=== PATIENT | female | born 1950 | race Caucasian/White ===

== ENCOUNTER 2017-07-31 10:38 | Outpatient (CLI) | payer MEDICARE, BC ==
--- NOTE | 2017-07-31 16:06 | NM ---
THREE PHASE BONE SCAN: Date: 07/31/17 CLINICAL HISTORY: Right knee replacement 8 years prior, with feeling of prosthetic mobility, pain. RADIOPHARMACEUTICAL: 31.2 mCi technetium-99m MDP IV. FINDINGS: Blood flow, blood pool, and delayed phase imaging performed. This reveals a photopenic defect at the right knee compatible with prosthesis. There is no significant periprosthetic scintigraphic activity to confirm loosening. There is prominent degenerative activity at the left knee. IMPRESSION: 1. No scintigraphic evidence to confirm loosening of the right knee prosthesis. 2. Prominent degenerative activity of the left knee. 3. Radiographic evaluation to correlate with bone scan evaluation would prove useful. POS: [facility]
== END 2017-07-31 10:39 | disposition home or self-care (01) ==
LOC: NM 10:38
PROVIDERS: ATTEND Family Medicine Sports Medicine
DX: M25.561 Pain in right knee (principal); Z96.651 Presence of right artificial knee joint
CPT/HCPCS: 78315; A9503

== ENCOUNTER 2017-10-01 13:55 | Inpatient (IN) | payer MEDICARE, BC ==
--- NOTE | 2017-10-01 15:17 | CT ---
CT PULMONARY ANGIOGRAM WITH IV CONTRAST AND 3D POSTPROCESSING: HISTORY: Cough, pneumonia. FINDINGS: There is good contrast opacification of the pulmonary arterial vascular without filling defects to capellan ggest pulmonary embolism. The thoracic aorta is well opacified without aneurysmal dissection. No pe ricardial effusion is seen. There are small right and moderate left pleural effusions with patchy ar eas of consolidation in the lung green bilaterally. There are degenerative changes in the spine. IMPRESSION: 1. No CT evidence of pulmonary embolism. 2. Bilateral infiltrates and pleural effusions are likely of infective etiology. POS: [facility]
[2017-10-01] MEDS ORDERED: Piperacillin/Tazobactam 4.5 GM in Sodium Chloride 0.9% 100 ML IVPB SCH (15:30)
[2017-10-01 15:49] LABS: Hemoglobin 8.3 g/dL (12.0-16.0); Mean Corpuscular HGB CONC 32.4 g/dL (32.0-36.0); Mean Corpuscular Hemoglobin 31.1 pg (27.0-31.0); Mean Corpuscular Volume 96.1 fl (81.0-99.0); Mean Platelet Volume 8.5 fL (7.4-10.4); Platelet Count 226 thou/uL (130-400); Red Blood Cell (RBC) Count 2.66 mill/uL (4.20-5.40); White Blood Cell (WBC) Count 17.2 thou/uL (4.8-10.8)
[2017-10-01 16:09] LABS: Lactic Acid 1.3 mmol/L (0.5-2.2)
[2017-10-01 16:14] LABS: ALT (SGPT) Less than 7 U/L (8-55); AST (SGOT) 11 U/L (5-34); Albumin 2.9 g/dL (3.4-4.8); Alkaline Phosphatase 57 U/L (40-150); Anion Gap 10 mmol/L (10-20); BUN (Urea Nitrogen) 12 mg/dL (9.8-20.1); Bilirubin, Total 0.5 mg/dL (0.2-1.2); Calc. Creatinine Clearance 0 mL/min (70-130); Calcium 8.4 mg/dL (7.8-10.44); Carbon Dioxide 31 mmol/L (23-31); Chloride 99 mmol/L (98-107); Estimated GFR-MDRD 51; Globulin 3.5 g/dL (2.4-3.5); Glucose 92 mg/dL (80-115); Potassium 4.2 mmol/L (3.5-5.1); Protein, Total 6.4 g/dL (6.0-8.3); Sodium 136 mmol/L (136-145)
[2017-10-01 16:27] LABS: CKMB 0.7 ng/mL (0-6.6); Troponin I Less than 0.010 ng/mL (< 0.028)
[2017-10-01 16:39] LABS: Lymphocytes 4 % (21-51); MDiff Complete? YES; Monocytes 9 % (0-10); Neutrophil 87 % (42-75); PLT Morphology Comment Appears Adequate
[2017-10-01] MEDS ORDERED: ISOVUE-370 76%-LOCM 1 ML ONE (17:08)
[2017-10-01] MEDS ORDERED: Milk Of Magnesia 30 ML UDCUP PO PRN (17:16)
[2017-10-01] MEDS ORDERED: Ondansetron ODT 4 MG TAB PO PRN (17:16)
[2017-10-01] MEDS ORDERED: Loperamide HCl 2 MG CAP PO PRN (17:16)
[2017-10-01] MEDS ORDERED: Eucerin (Mineral Oil/Petrolatum,White) 30 gm Jar TOP PRN (17:16)
[2017-10-01] MEDS ORDERED: Bisacodyl 10 MG SUPP PR PRN (17:16)
[2017-10-01] MEDS ORDERED: hydrALAZINE 20 MG/ML VIAL SLOW IVP PRN (17:16)
[2017-10-01] MEDS ORDERED: Acetaminophen 325 MG TAB PO PRN (17:16)
[2017-10-01] MEDS ORDERED: Loratadine 10 MG TAB PO PRN (17:16)
[2017-10-01] MEDS ORDERED: Ketorolac Tromethamine 30 MG/ML VIAL IVP PRN (17:16)
[2017-10-01] MEDS ORDERED: Mag-Al 1200 mg/1200 mg/30 ML UDCUP PO PRN (17:16)
[2017-10-01] MEDS ORDERED: Zolpidem Tartrate 5 MG TAB PO PRN (17:16)
[2017-10-01] MEDS ORDERED: Artificial Tears 18 DROP/0.9 ML EA EYE PRN (17:16)
[2017-10-01] MEDS ORDERED: Sodium Chloride 0.65% Nasal 44 ML BOT EA NARE PRN (17:16)
[2017-10-01] MEDS ORDERED: Chloraseptic Spray 180 ml Bottle PO PRN (17:16)
[2017-10-01] MEDS ORDERED: Fleet Enema 133 ML BOT PR PRN (17:16)
--- NOTE | 2017-10-01 17:40 | HP ---
PRIMARY CARE PHYSICIAN: Aaliyah Her, Family Nurse Practitioner. REASON FOR ADMISSION: Bilateral pneumonia, failed outpatient therapy. HISTORY OF PRESENT ILLNESS: A 67-year-old female who had left total knee replacement done by Dr. Sohail duncan at [facility] about a week and half ago. The patient had surgery one week before Thursday. She did okay on Thursday and after that; Thursday, she had respiratory difficulty. As per patient's d marhter, she had some kind of arrest. Her oxygen saturation was not keeping up and she was having re spiratory distress and that is why she required transfer to [facility] where she stayed up until Thursday of this week. Over there, the patient was given antibiotic therapy. The patient was slowly recovering. Initially, she had a cough productive of yellowish white sputum, but then sh e had only dry cough. She was having pleuritic chest pain. She was having dyspnea on exertion. She was feeling weak. She was discharged to [facility] on Thursday. She did oka y on . The patient was taking antibiotic therapy with clindamycin and levofloxacin. The yulissa fernandez has finished antibiotic therapy just yesterday, but condition was not improving. She was feelin g more shortness of breath and that is why skilled nursing sent her to the emergency room for evaluation . In the emergency room, the patient had CT angio, which was negative for pulmonary embolism, but it did show bilateral infiltration with pleural effusion. The patient also had leukocytosis with a lef t shift. The patient was initially hypotensive, but her blood pressure improved with IV fluid. The patient denies any lower extremity edema. She denies any orthopnea or PND. She was feeling subjecti ve fevers. She denies any flu-like illness. She denies any recent upper respiratory infection. She denies any sick exposure. She was recently hospitalized at [facility]. ALLERGIES: CODEINE SULFATE. CURRENT HOME MEDICATIONS: Cardizem-CD 180 mg p.o. daily, dicyclomine 10 mg twice daily, Celexa 40 mg p.o. daily, clindamycin 300 mg 4 times daily, gabapentin 300 mg twice daily, oxybutynin ER 10 mg p.o . daily, potassium chloride 20 mEq p.o. daily, Phenergan 25 mg p.o. p.r.n., Tessalon 100 mg 3 times d aily p.r.n., tramadol 50 mg q.6 hourly p.r.n., Lasix 40 mg p.o. daily, Levaquin 750 mg p.o. daily. REVIEW OF SYSTEMS: The following complete review of systems was negative, unless otherwise mentioned in the HPI or below: Constitutional: Weight loss or gain, ability to conduct usual activities. Skin: Rash, itching. Eyes: Double vision, pain. ENT/Mouth: Nose bleeding, neck stiffness, pain, tenderness. Cardiovascular: Palpitations, dyspnea on exertion, orthopnea. Respiratory: Shortness of breath, wheezing, cough, hemoptysis, fever or night sweats. Gastrointestinal: Poor appetite, abdominal pain, heartburn, nausea, vomiting, constipation, or diarr hea. Genitourinary: Urgency, frequency, dysuria, nocturia. Musculoskeletal: Pain, swelling. Neurologic/Psychiatric: Anxiety, depression. Allergy/Immunologic: Skin rash, bleeding tendency. Please see my HPI for pertinent positives and negatives. All other review of systems reviewed and ne gative except as mentioned in the HPI. PAST MEDICAL HISTORY: Lumbar disk disease, chronic low back pain, restless leg syndrome, irritable b owel syndrome, hypertension, overactive bladder, osteoarthritis. PAST SURGICAL HISTORY: Hysterectomy, history of right knee replacement, status post left knee replac ement. PAST PSYCHIATRIC HISTORY: Anxiety and depression. SOCIAL HISTORY: The patient lives at home with family. No history of tobacco, alcohol or illicit dr ug abuse. Currently, the patient is from skilled nursing. FAMILY HISTORY: No strong family history of premature coronary artery disease, stroke or cancer. EMERGENCY ROOM COURSE: The patient has received vancomycin, Zosyn and IV fluid. PHYSICAL EXAMINATION: VITAL SIGNS: Currently, blood pressure 110/52, pulse 94, respiratory rate 20, temperature 98.3, satu ration 98% on 2 liter oxygen. Weight 83.1 kilograms. GENERAL: The patient is currently alert, awake, in no obvious acute distress. HEAD: Normocephalic, atraumatic. EYES: Pupils are round and reactive to light. Extraocular muscles are intact. ENT: Oropharynx within normal limits. Moist mucous membranes. No oral lesions. No pharyngeal eryt felipa. No exudate. NECK: Supple, no JVD, no thyromegaly, no carotid bruits. LUNGS: Bibasilar rales noted. End expiratory wheezing heard. Reduced air entry at base. CARDIAC: S1, S2 regular without any murmur. ABDOMEN: Soft, bowel sounds present, nontender, nondistended. No organomegaly, no mass, no suprapub ic tenderness. BACK: Unremarkable, no CVA tenderness. EXTREMITIES: Upper extremity: Passive movement of all joints are normal. Lower extremities: The l eft knee surgical site is clean and healthy, right lower extremity within normal limits. Good distal pulsation. No edema, no calf tenderness. NEUROLOGIC: Nonfocal examination. The patient moves all 4 limbs. Plantar bilateral flexor. Motor and sensory within normal limits. No cerebellar sign. HEMATOLOGIC SYSTEM: No lymphadenopathy. PSYCHIATRIC: Normal affect. SIGNIFICANT LABORATORY DATA: CT angio based on my review, no evidence of pulmonary embolism, bilater al infiltrate and pleural effusion, likely due to infectious etiology. property assessment monitor was showing normal sinus rhythm without any ischemic changes. CBC: WBC 17.2, hemoglobin 8.3, platelet 226 with a left shift. BMP: Sodium 136, potassium 4.2, chl oride 99, carbon dioxide 31, anion gap 10, BUN 12, creatinine 1.07, glucose 92, calcium 8.4, lactic a yudith 1.3. LFT: AST 11, ALT less than 7, alkaline phosphatase 57, albumin 2.9, protein 6.4, CK-MB 0.7 , troponin I less than 0.010. BNP 79.8. ASSESSMENT AND PLAN: IMPRESSION: 1. Bilateral pneumonia, healthcare-associated. Failed outpatient therapy. This patient still has o ngoing cough, shortness of breath. She does have bilateral lower lobe infiltration as well as effusi on. She has leukocytosis. She does have pleuritic chest pain. CT angio does not show any PE. Her BNP is normal. Her cardiac enzymes are negative, so most likely this patient has healthcare-associat ed pneumonia given her recent hospitalization at [facility]. This patient has not completely re covered yet. At this point, we will keep this patient in hospital and we will continue with antibiot ic therapy with vancomycin and Zosyn. We will check influenza screen. We will follow up on blood cu lture result. We will also send urine culture and urinalysis to rule out any associated urinary trac t infection. 2. Hypotension. At this point, the patient will be given gentle IV fluid at 100 mL per hour and we will monitor vitals. We will hold on antihypertensive medication. 3. Chronic low back pain with lumbar disk disease. We will continue gabapentin 300 mg p.o. twice da kristie. 4. Anxiety and depression. We will continue Celexa 40 mg p.o. daily. 5. Recent left total knee replacement. The patient will need PT, OT while in hospital. 6. History of irritable bowel syndrome. We will continue Bentyl 10 mg twice daily. 7. Overactive bladder. We will continue Ditropan ER 10 mg p.o. daily. 8. Restless leg syndrome. 9. Deep venous thrombosis prophylaxis. Lovenox 40 mg subcu daily. 10. Gastrointestinal prophylaxis. Pepcid 20 mg p.o. b.i.d. 11. Code status: The patient is FULL CODE. The patient's daughter is surrogate decision maker. Disposition plan based on clinical course. We are expecting patient's stay in hospital more than 2 m idnights. Plan of care discussed with the patient and family member at bedside in the emergency room .
[2017-10-01 17:51] VITALS: BMI 33.5
[2017-10-01 18:01] LABS: Bilirubin Negative (Negative); Blood, Urine Negative (Negative); Clarity CLEAR (Clear); Glucose, Urine (Dipstick) Negative (Negative); Leukocyte Negative (Negative); Nitrite Negative (Negative); Protein, Urine (Dipstick) Negative (Neg-Trace); Specific Gravity, Urine 1.014 (1.002-1.036); Urobilinogen 0.2 mg/dL (0.2-1.0)
[2017-10-01] MEDS: traMADol HCl 50 MG TAB PO PRN (18:11)
[2017-10-01] MEDS: Diabetic Tussin 200 MG/10 ML UDCUP PO PRN (18:11)
[2017-10-01] MEDS: Sodium Chloride 0.9% 1,000 ML IV SCH (18:11)
[2017-10-01 18:13] LABS: Bacteria/HPF Rare-Few HPF (None Seen); Hyaline Casts/LPF NONE SEEN LPF (0-3 Hyaline); RBC/HPF None Seen HPF (0-3); Squamous Epithelial 0-3 HPF (0-3); WBC/HPF None Seen HPF (0-3)
[2017-10-01] MEDS: Docusate 100 MG CAP PO SCH (21:20)
[2017-10-01] MEDS: guaiFENesin ER 600 MG TAB PO SCH (21:20)
[2017-10-01] MEDS: Famotidine 20 MG TAB PO SCH (21:20)
[2017-10-02] MEDS: Piperacillin/Tazobactam 4.5 GM in Sodium Chloride 0.9% 100 ML IVPB SCH ×4 (00:45→17:30)
[2017-10-02] MEDS: Sodium Chloride 0.9% 1,000 ML IV SCH ×2 (04:37→08:37)
[2017-10-02 04:43] LABS: #Lymphocytes 0.7 thou/uL (1.20-3.40); #Monocytes 0.6 thou/uL (0.11-0.59); #Neutrophils 13.4 thou/uL (1.40-6.50); %Basophils 0.1 % (0.0-1.0); %Lymphocytes 4.9 % (21.0-51.0); %Monocytes 4.3 % (0.0-10.0); %Neutrophils 90.6 % (42.0-75.0); Hemoglobin 8.5 g/dL (12.0-16.0); Mean Corpuscular Hemoglobin 30.9 pg (27.0-31.0); Mean Corpuscular Volume 96.5 fl (81.0-99.0); Mean Platelet Volume 8.6 fL (7.4-10.4); Platelet Count 229 thou/uL (130-400); RBC Distribution Width 13.1 % (11.5-14.5); Red Blood Cell (RBC) Count 2.76 mill/uL (4.20-5.40); White Blood Cell (WBC) Count 14.8 thou/uL (4.8-10.8)
[2017-10-02 05:02] LABS: ALT (SGPT) Less than 7 U/L (8-55); AST (SGOT) 10 U/L (5-34); Alkaline Phosphatase 61 U/L (40-150); Anion Gap 12 mmol/L (10-20); BUN (Urea Nitrogen) 10 mg/dL (9.8-20.1); Bilirubin, Total 0.4 mg/dL (0.2-1.2); Calc. Creatinine Clearance 67 mL/min (70-130); Calcium 8.3 mg/dL (7.8-10.44); Carbon Dioxide 26 mmol/L (23-31); Chloride 103 mmol/L (98-107); Estimated GFR-MDRD 52; Globulin 3.6 g/dL (2.4-3.5); Glucose 188 mg/dL (80-115); Potassium 4.8 mmol/L (3.5-5.1); Protein, Total 6.6 g/dL (6.0-8.3); Sodium 136 mmol/L (136-145)
[2017-10-02] MEDS ORDERED: Polyethylene Glycol 3350 17 GM Packet PO PRN (07:41)
[2017-10-02] MEDS: Docusate 100 MG CAP PO SCH ×2 (08:36→21:55)
[2017-10-02] MEDS: Famotidine 20 MG TAB PO SCH ×2 (08:36→21:54)
[2017-10-02] MEDS: Enoxaparin Sodium 40 MG/0.4 ML SYRINGE SC SCH (08:36)
[2017-10-02] MEDS: guaiFENesin ER 600 MG TAB PO SCH ×2 (08:36→21:54)
[2017-10-02] MEDS: Dicyclomine 10 MG CAP PO SCH ×2 (08:36→21:54)
[2017-10-02] MEDS ORDERED: Non-Formulary Item 1 EACH (Oxybutynin Chloride [Oxybutynin Chloride Er] 10 MG) PO SCH (09:00)
--- NOTE | 2017-10-02 10:08 | PDOC.PN ---
- Subjective Encounter Start Date: 10/02/17 Encounter Start Time: 08:40 -: old records requested/rev Patient seen and examined. No new complaints. No overnight events - Objective Resuscitation Status: Resuscitation Status FULL:Full Resuscitation MAR Reviewed: Yes Vital Signs & Weight: Vital Signs (12 hours) Temp Pulse Resp BP Pulse Ox 10/02/17 07:23 97.4 F L 80 16 117/69 98 10/02/17 04:00 98.1 F 84 18 101/65 94 L 10/02/17 00:00 98.2 F 92 18 108/68 92 L Weight Weight 183 lb I&O: 10/01/17 10/02/17 10/03/17 06:59 06:59 06:59 Intake Total 2380 Output Total 1450 Balance 930 Result Diagrams: 10/02/17 04:12 10/02/17 04:12 Phys Exam - Physical Examination Constitutional: NAD HEENT: PERRLA, moist MMs, sclera anicteric Neck: no JVD, supple Respiratory: no wheezing, no rhonchi basilar rales Cardiovascular: RRR, no significant murmur, no rub Gastrointestinal: soft, non-tender, no distention, positive bowel sounds Musculoskeletal: no edema, pulses present left knee with pedro Neurological: non-focal, normal sensation, moves all 4 limbs Psychiatric: normal affect, A&O x 3 Skin: no rash, normal turgor Dx/Plan (1) Healthcare associated bacterial pneumonia Code(s): J15.9 - UNSPECIFIED BACTERIAL PNEUMONIA Status: Acute (2) Sepsis Code(s): A41.9 - SEPSIS, UNSPECIFIED ORGANISM Status: Acute (3) Status post left knee replacement Code(s): Z96.652 - PRESENCE OF LEFT ARTIFICIAL KNEE JOINT Status: Acute (4) Anemia, normocytic normochromic Code(s): D64.9 - ANEMIA, UNSPECIFIED Status: Chronic (5) Anxiety and depression Code(s): F41.8 - OTHER SPECIFIED ANXIETY DISORDERS Status: Chronic (6) Chronic low back pain Code(s): M54.5 - LOW BACK PAIN; G89.29 - OTHER CHRONIC PAIN Status: Chronic (7) Hypertension Code(s): I10 - ESSENTIAL (PRIMARY) HYPERTENSION Status: Chronic (8) Obesity (BMI 30.0-34.9) Code(s): E66.9 - OBESITY, UNSPECIFIED Status: Chronic (9) Hypotension Status: Resolved - Plan cont current plan of care, plan discussed w/ family, continue antibiotics, PT/OT , school social worker, respiratory therapy, incentive spirometry, DVT proph w/ lovenox * continue IVF * continue vancomycin and zosyn * start PT * medication reviewed as below * symptomatic treatment * follow culture * discussed with daughter * pt wants to change longterm on discharge, case folder notified. Review of Systems - Review of Systems Constitutional: negative: fever, chills, sweats, weakness, malaise, other Eyes: negative: Pain, Vision Change, Conjunctivae Inflammation, Eyelid Inflammation, Redness, Other ENT: negative: Ear Pain, Ear Discharge, Nose Pain, Nose Discharge, Nose Congestion, Mouth Pain, Mouth Swelling, Throat Pain, Throat Swelling, Other Respiratory: Cough, Shortness of Breath, SOB with Excertion. negative: Dry, Hemoptysis, Pleuritic Pain, Sputum, Wheezing Cardiovascular: negative: chest pain, palpitations, orthopnea, paroxysmal nocturnal dyspnea, edema, light headedness, other Gastrointestinal: negative: Nausea, Vomiting, Abdominal Pain, Diarrhea, Constipation, Melena, Hematochezia, Other Genitourinary: negative: Dysuria, Frequency, Incontinence, Hematuria, Retention , Other Musculoskeletal: negative: Neck Pain, Shoulder Pain, Arm Pain, Back Pain, Hand Pain, Leg Pain, Foot Pain, Other Skin: negative: Rash, Lesions, Sy, Bruising, Other - Medications/Allergies Allergies/Adverse Reactions: Allergies Allergy/AdvReac Type Severity Reaction Status Date / Time No Known Allergies Allergy Unverified 10/01/17 17:53 Medications: Current Medications Acetaminophen (Tylenol) 650 mg PO Q4H PRN PRN Reason: Headache/Fever or Pain Al Hydroxide/Mg Hydroxide (Maalox) 30 ml PO Q6H PRN PRN Reason: Heartburn or Indigestion Albuterol/Ipratropium (Duoneb) 3 ml NEB [id number] Last Admin: 10/02/17 07:23 Dose: 3 ml Albuterol/Ipratropium (Duoneb) 3 ml NEB [id number] PRN PRN Reason: SOB &/or Wheezing Artificial Tears (Tears Naturale) 0 drop EA EYE PRN PRN PRN Reason: Dry Eyes Bisacodyl (Dulcolax) 10 mg [place] Q24H PRN PRN Reason: Constipation Dicyclomine HCl (Bentyl) 10 mg PO BID [facility] Last Admin: 10/02/17 08:36 Dose: 10 mg Docusate Sodium (Colace) 100 mg PO BID [facility] Last Admin: 10/02/17 08:36 Dose: 100 mg Enoxaparin Sodium (Lovenox) 40 mg SC 0900 [facility] Last Admin: 10/02/17 08:36 Dose: 40 mg Famotidine (Pepcid) 20 mg PO BID [facility] Last Admin: 10/02/17 08:36 Dose: 20 mg Guaifenesin (Robitussin Sf) 200 mg PO Q4H PRN PRN Reason: Cough Last Admin: 10/01/17 18:11 Dose: 200 mg Guaifenesin (Mucinex) 600 mg PO Q12HR [facility] Last Admin: 10/02/17 08:36 Dose: 600 mg Hydralazine HCl (Apresoline) 10 mg SLOW IVP Q4H PRN PRN Reason: Systolic BP > 180 Sodium Chloride (Normal Saline 0.9%) 1,000 mls @ 100 mls/hr IV .Q10H [facility] Last Admin: 10/02/17 08:37 Dose: 1,000 mls Piperacillin Sod/Tazobactam (Sod 4.5 gm/ Sodium Chloride) 100 mls @ 200 mls/hr IVPB Q6HR [facility] Last Admin: 10/02/17 06:33 Dose: 100 mls Vancomycin HCl 1.25 gm/ Sodium (Chloride) 250 mls @ 166.667 mls/hr IVPB 1500 [facility]I Ketorolac Tromethamine (Toradol) 15 mg IVP Q6H PRN PRN Reason: Pain Stop: 10/06/17 17:17 Loperamide HCl (Imodium) 2 mg PO PRN PRN PRN Reason: Diarrhea/Loose Stools Loratadine (Claritin) 10 mg PO DAILYPRN PRN PRN Reason: Sinus Symptoms Magnesium Hydroxide (Milk Of Magnesium) 30 ml PO DAILYPRN PRN PRN Reason: Constipation Methylprednisolone Sodium Succinate (Solu-Medrol) 20 mg IVP Q8HR [facility] Last Admin: 10/02/17 06:32 Dose: 20 mg Mineral Oil/White Petrolatum (Eucerin Cream) 0 gm TOP BIDPRN PRN PRN Reason: Dry Skin Miscellaneous Medication (Pharmacy To Dose) 1 each IVPB ONE PRN PRN Reason: Pharmacy to dose Stop: 10/31/17 17:17 Ondansetron HCl (Zofran Odt) 4 mg PO Q6H PRN PRN Reason: Nausea/Vomiting Ondansetron HCl (Zofran) 4 mg IVP Q6H PRN PRN Reason: Nausea/Vomiting Oxybutynin Chloride (Ditropan Xl) 10 mg PO DAILY ZI Phenol (Chloraseptic [place] 180 Ml Bot) 0 ml PO PRN PRN PRN Reason: Sore Throat Polyethylene Glycol (Miralax) 17 gm PO DAILY PRN PRN Reason: Constipation Sodium Biphosphate/Sodium Phosphate (Fleet Enema) 133 ml [place] ONE PRN PRN Reason: Constipation Stop: 10/08/17 17:17 Sodium Chloride ([place] Nasal [place] 0.65%) 0 ml EA NARE QIDPRN PRN PRN Reason: Nasal Congestion Tramadol HCl (Ultram) 50 mg PO Q4H PRN PRN Reason: Moderate Pain (4-6) Last Admin: 10/01/17 18:11 Dose: 50 mg Zolpidem Tartrate (Ambien) 5 mg PO HSPRN PRN PRN Reason: Insomnia
[2017-10-02] MEDS: Oxybutynin ER 5 MG TAB PO SCH (10:11)
[2017-10-02] MEDS: traMADol HCl 50 MG TAB PO PRN (12:00)
[2017-10-02] MEDS ORDERED: Vancomycin HCl 1.25 GM in Sodium Chloride 0.9% 250 ML 250 ML IVPB SCH (15:00)
[2017-10-02] MEDS ORDERED: Albuterol Sulfate 2.5 mg/3 ml Neb NEB PRN (21:26)
[2017-10-02] MEDS: Lorazepam 1 MG TAB PO PRN (21:55)
[2017-10-02] MEDS: cefTRIAXone\\ROCEPHIN 2 GM in Sodium Chloride 0.9% 100 ML IVPB SCH (23:15)
[2017-10-03] MEDS: Piperacillin/Tazobactam 4.5 GM in Sodium Chloride 0.9% 100 ML IVPB SCH ×4 (00:50→18:22)
[2017-10-03] MEDS: Sodium Chloride 0.9% 1,000 ML IV SCH ×2 (01:06→08:55)
[2017-10-03] MEDS: guaiFENesin ER 600 MG TAB PO SCH ×2 (08:51→20:37)
[2017-10-03] MEDS: Docusate 100 MG CAP PO SCH ×2 (08:51→20:38)
[2017-10-03] MEDS: Famotidine 20 MG TAB PO SCH ×2 (08:51→20:38)
[2017-10-03] MEDS: Dicyclomine 10 MG CAP PO SCH ×2 (08:51→20:39)
[2017-10-03] MEDS: Oxybutynin ER 5 MG TAB PO SCH (08:52)
[2017-10-03] MEDS: Enoxaparin Sodium 40 MG/0.4 ML SYRINGE SC SCH (08:52)
--- NOTE | 2017-10-03 10:19 | PDOC.PN ---
- Subjective Encounter Start Date: 10/03/17 Encounter Start Time: 08:00 last night pt had panic attack, has cough, still has weakness, no fever, oxygen level is still low - Objective Resuscitation Status: Resuscitation Status FULL:Full Resuscitation MAR Reviewed: Yes Vital Signs & Weight: Vital Signs (12 hours) Temp Pulse Resp BP Pulse Ox 10/03/17 07:45 97.7 F 102 H 18 143/73 H 89 L 10/03/17 06:47 98 16 94 L 10/03/17 00:00 98.1 F 104 H 20 126/76 95 Weight Weight 183 lb I&O: 10/02/17 10/03/17 10/04/17 06:59 06:59 06:59 Intake Total 2380 3660 Output Total 1450 1700 Balance 930 1960 Result Diagrams: 10/02/17 04:12 10/02/17 04:12 Phys Exam - Physical Examination Constitutional: NAD HEENT: PERRLA, moist MMs, sclera anicteric Neck: no JVD, supple Respiratory: no wheezing, no rales, no rhonchi reduced air entry at base Cardiovascular: RRR, no significant murmur, no rub Gastrointestinal: soft, non-tender, no distention, positive bowel sounds Musculoskeletal: no edema, pulses present left knee pedro at surgical site Neurological: non-focal, normal sensation Psychiatric: normal affect, A&O x 3 Skin: no rash, normal turgor Dx/Plan (1) Healthcare associated bacterial pneumonia Code(s): J15.9 - UNSPECIFIED BACTERIAL PNEUMONIA Status: Acute (2) Sepsis Code(s): A41.9 - SEPSIS, UNSPECIFIED ORGANISM Status: Acute (3) Status post left knee replacement Code(s): Z96.652 - PRESENCE OF LEFT ARTIFICIAL KNEE JOINT Status: Acute (4) Anemia, normocytic normochromic Code(s): D64.9 - ANEMIA, UNSPECIFIED Status: Chronic (5) Anxiety and depression Code(s): F41.8 - OTHER SPECIFIED ANXIETY DISORDERS Status: Chronic (6) Chronic low back pain Code(s): M54.5 - LOW BACK PAIN; G89.29 - OTHER CHRONIC PAIN Status: Chronic (7) Hypertension Code(s): I10 - ESSENTIAL (PRIMARY) HYPERTENSION Status: Chronic (8) Obesity (BMI 30.0-34.9) Code(s): E66.9 - OBESITY, UNSPECIFIED Status: Chronic (9) Hypotension Status: Resolved - Plan cont current plan of care, continue antibiotics, PT/OT * change dueneb as needed. * continue vancomycin and zosyn * await placement to another SNU * DC IVF * will repeat labs tomorrow * medication reviewed as below * symptomatic treatment * will discuss with her ortho on Thursday to consider removal of pedro Review of Systems - Review of Systems Constitutional: weakness. negative: fever, chills, sweats, malaise, other Respiratory: Cough. negative: Dry, Shortness of Breath, Hemoptysis, SOB with Excertion, Pleuritic Pain, Sputum, Wheezing Cardiovascular: negative: chest pain, palpitations, orthopnea, paroxysmal nocturnal dyspnea, edema, light headedness, other Gastrointestinal: negative: Nausea, Vomiting, Abdominal Pain, Diarrhea, Constipation, Melena, Hematochezia, Other Genitourinary: negative: Dysuria, Frequency, Incontinence, Hematuria, Retention , Other Musculoskeletal: negative: Neck Pain, Shoulder Pain, Arm Pain, Back Pain, Hand Pain, Leg Pain, Foot Pain, Other Skin: negative: Rash, Lesions, Sy, Bruising, Other - Medications/Allergies Allergies/Adverse Reactions: Allergies Allergy/AdvReac Type Severity Reaction Status Date / Time No Known Allergies Allergy Unverified 10/01/17 17:53 Medications: Current Medications Acetaminophen (Tylenol) 650 mg PO Q4H PRN PRN Reason: Headache/Fever or Pain Al Hydroxide/Mg Hydroxide (Maalox) 30 ml PO Q6H PRN PRN Reason: Heartburn or Indigestion Albuterol Sulfate (Ventolin) 2.5 mg NEB Q2H PRN PRN Reason: Wheezing Albuterol/Ipratropium (Duoneb) 3 ml NEB [id number] [facility] Last Admin: 10/03/17 06:47 Dose: 3 ml Artificial Tears (Tears Naturale) 0 drop EA EYE PRN PRN PRN Reason: Dry Eyes Bisacodyl (Dulcolax) 10 mg [place] Q24H PRN PRN Reason: Constipation Dicyclomine HCl (Bentyl) 10 mg PO BID [facility] Last Admin: 10/03/17 08:51 Dose: 10 mg Docusate Sodium (Colace) 100 mg PO BID [facility] Last Admin: 10/03/17 08:51 Dose: 100 mg Enoxaparin Sodium (Lovenox) 40 mg SC 0900 [facility] Last Admin: 10/03/17 08:52 Dose: 40 mg Famotidine (Pepcid) 20 mg PO BID [facility] Last Admin: 10/03/17 08:51 Dose: 20 mg Guaifenesin (Robitussin Sf) 200 mg PO Q4H PRN PRN Reason: Cough Last Admin: 10/01/17 18:11 Dose: 200 mg Guaifenesin (Mucinex) 600 mg PO Q12HR [facility] Last Admin: 10/03/17 08:51 Dose: 600 mg Hydralazine HCl (Apresoline) 10 mg SLOW IVP Q4H PRN PRN Reason: Systolic BP > 180 Piperacillin Sod/Tazobactam (Sod 4.5 gm/ Sodium Chloride) 100 mls @ 200 mls/hr IVPB Q6HR [facility] Last Admin: 10/03/17 06:21 Dose: 100 mls Vancomycin HCl 1.25 gm/ Sodium (Chloride) 250 mls @ 166.667 mls/hr IVPB 1500 [facility] Last Admin: 10/02/17 14:17 Dose: 250 mls Ceftriaxone Sodium 2 gm/ (Sodium Chloride) 100 mls @ 200 mls/hr IVPB 2200 [facility] Last Admin: 10/02/17 23:15 Dose: 100 mls Levofloxacin 500 mg/ Device 100 mls @ 100 mls/hr IVPB 2200 [facility] Last Admin: 10/02/17 21:55 Dose: 100 mls Ketorolac Tromethamine (Toradol) 15 mg IVP Q6H PRN PRN Reason: Pain Stop: 10/06/17 17:17 Last Admin: 10/02/17 14:16 Dose: 15 mg Loperamide HCl (Imodium) 2 mg PO PRN PRN PRN Reason: Diarrhea/Loose Stools Loratadine (Claritin) 10 mg PO DAILYPRN PRN PRN Reason: Sinus Symptoms Lorazepam (Ativan) 1 mg PO Q4H PRN PRN Reason: Anxiety/Agitation Last Admin: 10/02/17 21:55 Dose: 1 mg Magnesium Hydroxide (Milk Of Magnesium) 30 ml PO DAILYPRN PRN PRN Reason: Constipation Methylprednisolone Sodium Succinate (Solu-Medrol) 20 mg IVP Q8HR [facility] Last Admin: 10/03/17 06:20 Dose: 20 mg Mineral Oil/White Petrolatum (Eucerin Cream) 0 gm TOP BIDPRN PRN PRN Reason: Dry Skin Miscellaneous Medication (Pharmacy To Dose) 1 each IVPB ONE PRN PRN Reason: Pharmacy to dose Stop: 10/31/17 17:17 Ondansetron HCl (Zofran Odt) 4 mg PO Q6H PRN PRN Reason: Nausea/Vomiting Ondansetron HCl (Zofran) 4 mg IVP Q6H PRN PRN Reason: Nausea/Vomiting Oxybutynin Chloride (Ditropan Xl) 10 mg PO DAILY [facility] Last Admin: 10/03/17 08:52 Dose: 10 mg Phenol (Chloraseptic [place] 180 Ml Bot) 0 ml PO PRN PRN PRN Reason: Sore Throat Polyethylene Glycol (Miralax) 17 gm PO DAILY PRN PRN Reason: Constipation Sodium Biphosphate/Sodium Phosphate (Fleet Enema) 133 ml [place] ONE PRN PRN Reason: Constipation Stop: 10/08/17 17:17 Sodium Chloride ([place] Nasal [place] 0.65%) 0 ml EA NARE QIDPRN PRN PRN Reason: Nasal Congestion Tramadol HCl (Ultram) 50 mg PO Q4H PRN PRN Reason: Moderate Pain (4-6) Last Admin: 10/02/17 12:00 Dose: 50 mg Zolpidem Tartrate (Ambien) 5 mg PO HSPRN PRN PRN Reason: Insomnia
[2017-10-03] MEDS: Diabetic Tussin 200 MG/10 ML UDCUP PO PRN ×2 (12:32→20:27)
[2017-10-03] MEDS: Lorazepam 1 MG TAB PO PRN ×2 (12:32→21:39)
[2017-10-03 14:32] LABS: Vancomycin, Trough 12.3 ug/mL
[2017-10-03] MEDS: Ondansetron HCl/PF 4 MG/2 ML Vial IVP PRN ×2 (15:30→20:43)
[2017-10-03] MEDS: Vancomycin HCl 1.5 GM in Sodium Chloride 0.9% 250 ML 300 ML IVPB SCH (15:57)
[2017-10-03] MEDS: cefTRIAXone\\ROCEPHIN 2 GM in Sodium Chloride 0.9% 100 ML IVPB SCH (20:29)
[2017-10-03] MEDS ORDERED: Lorazepam 0.5 MG TAB PO SCH (23:00)
[2017-10-04] MEDS: Piperacillin/Tazobactam 4.5 GM in Sodium Chloride 0.9% 100 ML IVPB SCH ×5 (00:16→23:18)
[2017-10-04] MEDS: Diabetic Tussin 200 MG/10 ML UDCUP PO PRN ×2 (03:19→19:49)
--- NOTE | 2017-10-04 09:40 | PDOC.PN ---
- Subjective Encounter Start Date: 10/04/17 Encounter Start Time: 08:30 last night she got couging spells and then she developed panic attack, no fever , still needs oxygen she was given ativan and ambien but that did not help with sleep. - Objective Resuscitation Status: Resuscitation Status FULL:Full Resuscitation MAR Reviewed: Yes Vital Signs & Weight: Vital Signs (12 hours) Temp Pulse Resp BP Pulse Ox 10/04/17 08:00 98.0 F 101 H 16 156/83 H 88 L 10/04/17 03:24 97.3 F L 100 22 H 144/85 H 92 L 10/04/17 00:00 98.3 F 105 H 18 142/75 H 93 L 10/03/17 23:26 100 16 93 L Weight Weight 183 lb I&O: 10/03/17 10/04/17 10/05/17 06:59 06:59 06:59 Intake Total 3660 3800 Output Total 1700 Balance 1960 3800 Result Diagrams: 10/02/17 04:12 10/02/17 04:12 Phys Exam - Physical Examination Constitutional: NAD HEENT: PERRLA, moist MMs, sclera anicteric Neck: no JVD, supple Respiratory: no wheezing, no rales, no rhonchi reduced air entry at base Cardiovascular: RRR, no significant murmur, no rub Gastrointestinal: soft, non-tender, no distention, positive bowel sounds Musculoskeletal: no edema, pulses present Neurological: non-focal, normal sensation, moves all 4 limbs Lymphatic: no nodes Psychiatric: normal affect, A&O x 3 Skin: no rash, normal turgor Dx/Plan (1) Healthcare associated bacterial pneumonia Code(s): J15.9 - UNSPECIFIED BACTERIAL PNEUMONIA Status: Acute (2) Sepsis Code(s): A41.9 - SEPSIS, UNSPECIFIED ORGANISM Status: Acute (3) Status post left knee replacement Code(s): Z96.652 - PRESENCE OF LEFT ARTIFICIAL KNEE JOINT Status: Acute (4) Anemia, normocytic normochromic Code(s): D64.9 - ANEMIA, UNSPECIFIED Status: Chronic (5) Anxiety and depression Code(s): F41.8 - OTHER SPECIFIED ANXIETY DISORDERS Status: Chronic (6) Chronic low back pain Code(s): M54.5 - LOW BACK PAIN; G89.29 - OTHER CHRONIC PAIN Status: Chronic (7) Hypertension Code(s): I10 - ESSENTIAL (PRIMARY) HYPERTENSION Status: Chronic (8) Obesity (BMI 30.0-34.9) Code(s): E66.9 - OBESITY, UNSPECIFIED Status: Chronic (9) Hypotension Status: Resolved - Plan cont current plan of care, plan discussed w/ family, continue antibiotics, PT/OT , social security benefits interviewer, respiratory therapy, incentive spirometry, DVT proph w/ lovenox * DC Ativan and ambien * per pt Klonopin works better, so will start 1 mg HS. * continue vancomycin and zosyn * on discharge augmentin and doxy * will need placement * wean off oxygen as tolerated * continue PT Review of Systems - Review of Systems Constitutional: weakness. negative: fever, chills, sweats, malaise, other ENT: negative: Ear Pain, Ear Discharge, Nose Pain, Nose Discharge, Nose Congestion, Mouth Pain, Mouth Swelling, Throat Pain, Throat Swelling, Other Respiratory: Cough. negative: Dry, Shortness of Breath, Hemoptysis, SOB with Excertion, Pleuritic Pain, Sputum, Wheezing Cardiovascular: negative: chest pain, palpitations, orthopnea, paroxysmal nocturnal dyspnea, edema, light headedness, other Gastrointestinal: negative: Nausea, Vomiting, Abdominal Pain, Diarrhea, Constipation, Melena, Hematochezia, Other Genitourinary: negative: Dysuria, Frequency, Incontinence, Hematuria, Retention , Other Musculoskeletal: negative: Neck Pain, Shoulder Pain, Arm Pain, Back Pain, Hand Pain, Leg Pain, Foot Pain, Other Skin: negative: Rash, Lesions, Sy, Bruising, Other - Medications/Allergies Allergies/Adverse Reactions: Allergies Allergy/AdvReac Type Severity Reaction Status Date / Time No Known Allergies Allergy Unverified 10/01/17 17:53 Medications: Current Medications Acetaminophen (Tylenol) 650 mg PO Q4H PRN PRN Reason: Headache/Fever or Pain Al Hydroxide/Mg Hydroxide (Maalox) 30 ml PO Q6H PRN PRN Reason: Heartburn or Indigestion Albuterol Sulfate (Ventolin) 2.5 mg NEB Q2H PRN PRN Reason: Wheezing Albuterol/Ipratropium (Duoneb) 3 ml NEB [id number] Last Admin: 10/04/17 06:53 Dose: Not Given Artificial Tears (Tears Naturale) 0 drop EA EYE PRN PRN PRN Reason: Dry Eyes Bisacodyl (Dulcolax) 10 mg [place] Q24H PRN PRN Reason: Constipation Dicyclomine HCl (Bentyl) 10 mg PO BID [facility] Last Admin: 10/03/17 20:39 Dose: 10 mg Docusate Sodium (Colace) 100 mg PO BID [facility] Last Admin: 10/03/17 20:38 Dose: Not Given Enoxaparin Sodium (Lovenox) 40 mg SC 0900 [facility] Last Admin: 10/03/17 08:52 Dose: 40 mg Famotidine (Pepcid) 20 mg PO BID [facility] Last Admin: 10/03/17 20:38 Dose: 20 mg Guaifenesin (Robitussin Sf) 200 mg PO Q4H PRN PRN Reason: Cough Last Admin: 10/04/17 03:19 Dose: 200 mg Guaifenesin (Mucinex) 600 mg PO Q12HR [facility] Last Admin: 10/03/17 20:37 Dose: 600 mg Hydralazine HCl (Apresoline) 10 mg SLOW IVP Q4H PRN PRN Reason: Systolic BP > 180 Piperacillin Sod/Tazobactam (Sod 4.5 gm/ Sodium Chloride) 100 mls @ 200 mls/hr IVPB Q6HR [facility] Last Admin: 10/04/17 06:38 Dose: 100 mls Ceftriaxone Sodium 2 gm/ (Sodium Chloride) 100 mls @ 200 mls/hr IVPB 2200 [facility] Last Admin: 10/03/17 20:29 Dose: 100 mls Levofloxacin 500 mg/ Device 100 mls @ 100 mls/hr IVPB 2200 [facility] Last Admin: 10/03/17 21:39 Dose: 100 mls Vancomycin HCl 1.5 gm/ Sodium (Chloride) 300 mls @ 200 mls/hr IVPB 1500 [facility] Last Admin: 10/03/17 15:57 Dose: 300 mls Ketorolac Tromethamine (Toradol) 15 mg IVP Q6H PRN PRN Reason: Pain Stop: 10/06/17 17:17 Last Admin: 10/02/17 14:16 Dose: 15 mg Loperamide HCl (Imodium) 2 mg PO PRN PRN PRN Reason: Diarrhea/Loose Stools Loratadine (Claritin) 10 mg PO DAILYPRN PRN PRN Reason: Sinus Symptoms Lorazepam (Ativan) 1 mg PO Q4H PRN PRN Reason: Anxiety/Agitation Last Admin: 10/03/17 21:39 Dose: 1 mg Magnesium Hydroxide (Milk Of Magnesium) 30 ml PO DAILYPRN PRN PRN Reason: Constipation Methylprednisolone Sodium Succinate (Solu-Medrol) 20 mg IVP Q8HR [facility] Last Admin: 10/04/17 06:39 Dose: 20 mg Mineral Oil/White Petrolatum (Eucerin Cream) 0 gm TOP BIDPRN PRN PRN Reason: Dry Skin Miscellaneous Medication (Pharmacy To Dose) 1 each IVPB ONE PRN PRN Reason: Pharmacy to dose Stop: 10/31/17 17:17 Ondansetron HCl (Zofran Odt) 4 mg PO Q6H PRN PRN Reason: Nausea/Vomiting Ondansetron HCl (Zofran) 4 mg IVP Q6H PRN PRN Reason: Nausea/Vomiting Last Admin: 10/03/17 20:43 Dose: 4 mg Oxybutynin Chloride (Ditropan Xl) 10 mg PO DAILY [facility] Last Admin: 10/03/17 08:52 Dose: 10 mg Phenol (Chloraseptic [place] 180 Ml Bot) 0 ml PO PRN PRN PRN Reason: Sore Throat Polyethylene Glycol (Miralax) 17 gm PO DAILY PRN PRN Reason: Constipation Sodium Biphosphate/Sodium Phosphate (Fleet Enema) 133 ml NC ONE PRN PRN Reason: Constipation Stop: 10/08/17 17:17 Sodium Chloride ([place] Nasal [place] 0.65%) 0 ml EA NARE QIDPRN PRN PRN Reason: Nasal Congestion Tramadol HCl (Ultram) 50 mg PO Q4H PRN PRN Reason: Moderate Pain (4-6) Last Admin: 10/02/17 12:00 Dose: 50 mg Zolpidem Tartrate (Ambien) 5 mg PO HSPRN PRN PRN Reason: Insomnia Last Admin: 10/04/17 00:15 Dose: 5 mg
[2017-10-04] MEDS: guaiFENesin ER 600 MG TAB PO SCH ×2 (09:48→21:29)
[2017-10-04] MEDS: Dicyclomine 10 MG CAP PO SCH ×2 (09:48→21:29)
[2017-10-04] MEDS: Docusate 100 MG CAP PO SCH ×2 (09:48→21:29)
[2017-10-04] MEDS: Famotidine 20 MG TAB PO SCH ×2 (09:48→21:29)
[2017-10-04] MEDS: Enoxaparin Sodium 40 MG/0.4 ML SYRINGE SC SCH (09:49)
[2017-10-04] MEDS: traMADol HCl 50 MG TAB PO PRN ×2 (14:15→18:22)
[2017-10-04] MEDS: Vancomycin HCl 1.5 GM in Sodium Chloride 0.9% 250 ML 300 ML IVPB SCH (15:08)
[2017-10-04] MEDS: Oxybutynin ER 5 MG TAB PO SCH (18:15)
[2017-10-04] MEDS: Ondansetron HCl/PF 4 MG/2 ML Vial IVP PRN (19:46)
[2017-10-04] MEDS ORDERED: Benzonatate 100 MG CAP PO PRN (19:57)
[2017-10-04] MEDS: clonazePAM 1 MG TAB PO SCH (21:29)
[2017-10-04] MEDS: cefTRIAXone\\ROCEPHIN 2 GM in Sodium Chloride 0.9% 100 ML IVPB SCH (21:30)
[2017-10-05 04:37] LABS: #Lymphocytes 0.7 thou/uL (1.20-3.40); #Monocytes 1.1 thou/uL (0.11-0.59); #Neutrophils 9.8 thou/uL (1.40-6.50); %Eosinophils 0.3 % (0.0-10.0); %Lymphocytes 6.4 % (21.0-51.0); %Monocytes 9.7 % (0.0-10.0); %Neutrophils 83.6 % (42.0-75.0); Hemoglobin 8.1 g/dL (12.0-16.0); Mean Corpuscular Hemoglobin 30.9 pg (27.0-31.0); Mean Corpuscular Volume 96.4 fl (81.0-99.0); Mean Platelet Volume 8.7 fL (7.4-10.4); Platelet Count 195 thou/uL (130-400); RBC Distribution Width 13.1 % (11.5-14.5); Red Blood Cell (RBC) Count 2.63 mill/uL (4.20-5.40); White Blood Cell (WBC) Count 11.7 thou/uL (4.8-10.8)
[2017-10-05 04:56] LABS: Anion Gap 12 mmol/L (10-20); BUN (Urea Nitrogen) 16 mg/dL (9.8-20.1); Calc. Creatinine Clearance 67 mL/min (70-130); Calcium 8.7 mg/dL (7.8-10.44); Carbon Dioxide 25 mmol/L (23-31); Chloride 105 mmol/L (98-107); Estimated GFR-MDRD 51; Glucose 135 mg/dL (80-115); Potassium 4.5 mmol/L (3.5-5.1); Sodium 137 mmol/L (136-145)
[2017-10-05] MEDS: Piperacillin/Tazobactam 4.5 GM in Sodium Chloride 0.9% 100 ML IVPB SCH (05:10)
[2017-10-05] MEDS: Dicyclomine 10 MG CAP PO SCH ×2 (09:01→20:37)
[2017-10-05] MEDS: Docusate 100 MG CAP PO SCH ×2 (09:01→20:37)
[2017-10-05] MEDS: Famotidine 20 MG TAB PO SCH ×2 (09:02→20:37)
[2017-10-05] MEDS: guaiFENesin ER 600 MG TAB PO SCH ×2 (09:02→20:37)
[2017-10-05] MEDS: Enoxaparin Sodium 40 MG/0.4 ML SYRINGE SC SCH (09:02)
[2017-10-05] MEDS: Oxybutynin ER 5 MG TAB PO SCH (09:02)
--- NOTE | 2017-10-05 10:44 | PDOC.PN ---
- Subjective Encounter Start Date: 10/05/17 Encounter Start Time: 08:10 -: old records requested/rev Patient seen and examined. No new complaints. No overnight events - Objective Resuscitation Status: Resuscitation Status FULL:Full Resuscitation MAR Reviewed: Yes Vital Signs & Weight: Vital Signs (12 hours) Temp Pulse Resp BP Pulse Ox 10/05/17 08:31 97.9 F 76 20 147/79 H 100 10/05/17 01:19 98 Weight Weight 183 lb I&O: 10/04/17 10/05/17 10/06/17 06:59 06:59 06:59 Intake Total 3800 1650 480 Balance 3800 1650 480 Result Diagrams: 10/05/17 03:50 10/05/17 03:50 Phys Exam - Physical Examination Constitutional: NAD HEENT: PERRLA, moist MMs, sclera anicteric Neck: no JVD, supple Respiratory: no wheezing, no rales, no rhonchi Cardiovascular: RRR, no significant murmur, no rub Gastrointestinal: soft, non-tender, no distention, positive bowel sounds Musculoskeletal: no edema, pulses present Neurological: non-focal, normal sensation, moves all 4 limbs Lymphatic: no nodes Psychiatric: normal affect, A&O x 3 Skin: no rash, normal turgor Dx/Plan (1) Healthcare associated bacterial pneumonia Code(s): J15.9 - UNSPECIFIED BACTERIAL PNEUMONIA Status: Acute (2) Sepsis Code(s): A41.9 - SEPSIS, UNSPECIFIED ORGANISM Status: Acute (3) Status post left knee replacement Code(s): Z96.652 - PRESENCE OF LEFT ARTIFICIAL KNEE JOINT Status: Acute (4) Anemia, normocytic normochromic Code(s): D64.9 - ANEMIA, UNSPECIFIED Status: Chronic (5) Anxiety and depression Code(s): F41.8 - OTHER SPECIFIED ANXIETY DISORDERS Status: Chronic (6) Chronic low back pain Code(s): M54.5 - LOW BACK PAIN; G89.29 - OTHER CHRONIC PAIN Status: Chronic (7) Hypertension Code(s): I10 - ESSENTIAL (PRIMARY) HYPERTENSION Status: Chronic (8) Obesity (BMI 30.0-34.9) Code(s): E66.9 - OBESITY, UNSPECIFIED Status: Chronic (9) Hypotension Status: Resolved - Plan cont current plan of care, plan discussed w/ family, continue antibiotics, PT/OT , social service agency director, DVT proph w/lovenox * medication reviewed as below * symptomatic treatment * continue iv antibiotics * will plan for discharge tomorrow when snu arranged. Review of Systems - Review of Systems ENT: negative: Ear Pain, Ear Discharge, Nose Pain, Nose Discharge, Nose Congestion, Mouth Pain, Mouth Swelling, Throat Pain, Throat Swelling, Other Respiratory: negative: Cough, Dry, Shortness of Breath, Hemoptysis, SOB with Excertion, Pleuritic Pain, Sputum, Wheezing Cardiovascular: negative: chest pain, palpitations, orthopnea, paroxysmal nocturnal dyspnea, edema, light headedness, other Gastrointestinal: negative: Nausea, Vomiting, Abdominal Pain, Diarrhea, Constipation, Melena, Hematochezia, Other Genitourinary: negative: Dysuria, Frequency, Incontinence, Hematuria, Retention , Other Musculoskeletal: negative: Neck Pain, Shoulder Pain, Arm Pain, Back Pain, Hand Pain, Leg Pain, Foot Pain, Other - Medications/Allergies Allergies/Adverse Reactions: Allergies Allergy/AdvReac Type Severity Reaction Status Date / Time No Known Allergies Allergy Unverified 10/01/17 17:53 Medications: Current Medications Acetaminophen (Tylenol) 650 mg PO Q4H PRN PRN Reason: Headache/Fever or Pain Al Hydroxide/Mg Hydroxide (Maalox) 30 ml PO Q6H PRN PRN Reason: Heartburn or Indigestion Albuterol Sulfate (Ventolin) 2.5 mg NEB Q2H PRN PRN Reason: Wheezing Albuterol/Ipratropium (Duoneb) 3 ml NEB [id number] [facility] Last Admin: 10/05/17 06:48 Dose: Not Given Artificial Tears (Tears Naturale) 0 drop EA EYE PRN PRN PRN Reason: Dry Eyes Benzonatate (Tessalon) 200 mg PO Q6H PRN PRN Reason: Cough Last Admin: 10/04/17 21:28 Dose: 200 mg Bisacodyl (Dulcolax) 10 mg [place] Q24H PRN PRN Reason: Constipation Clonazepam (Klonopin) 1 mg PO HS [facility] Last Admin: 10/04/17 21:29 Dose: 1 mg Dicyclomine HCl (Bentyl) 10 mg PO BID [facility] Last Admin: 10/05/17 09:01 Dose: 10 mg Docusate Sodium (Colace) 100 mg PO BID [facility] Last Admin: 10/05/17 09:01 Dose: 100 mg Enoxaparin Sodium (Lovenox) 40 mg SC 0900 [facility] Last Admin: 10/05/17 09:02 Dose: 40 mg Famotidine (Pepcid) 20 mg PO BID [facility] Last Admin: 10/05/17 09:02 Dose: 20 mg Guaifenesin (Robitussin Sf) 200 mg PO Q4H PRN PRN Reason: Cough Last Admin: 10/04/17 19:49 Dose: 200 mg Guaifenesin (Mucinex) 600 mg PO Q12HR [facility] Last Admin: 10/05/17 09:02 Dose: 600 mg Hydralazine HCl (Apresoline) 10 mg SLOW IVP Q4H PRN PRN Reason: Systolic BP > 180 Ceftriaxone Sodium 2 gm/ (Sodium Chloride) 100 mls @ 200 mls/hr IVPB 2200 [facility] Last Admin: 10/04/17 21:30 Dose: 100 mls Levofloxacin 500 mg/ Device 100 mls @ 100 mls/hr IVPB 2200 [facility] Last Admin: 10/04/17 21:30 Dose: 100 mls Ketorolac Tromethamine (Toradol) 15 mg IVP Q6H PRN PRN Reason: Pain Stop: 10/06/17 17:17 Last Admin: 10/02/17 14:16 Dose: 15 mg Loperamide HCl (Imodium) 2 mg PO PRN PRN PRN Reason: Diarrhea/Loose Stools Loratadine (Claritin) 10 mg PO DAILYPRN PRN PRN Reason: Sinus Symptoms Lorazepam (Ativan) 1 mg PO Q4H PRN PRN Reason: Anxiety/Agitation Last Admin: 10/03/17 21:39 Dose: 1 mg Magnesium Hydroxide (Milk Of Magnesium) 30 ml PO DAILYPRN PRN PRN Reason: Constipation Methylprednisolone Sodium Succinate (Solu-Medrol) 20 mg IVP Q8HR [facility] Last Admin: 10/05/17 05:10 Dose: 20 mg Mineral Oil/White Petrolatum (Eucerin Cream) 0 gm TOP BIDPRN PRN PRN Reason: Dry Skin Miscellaneous Medication (Pharmacy To Dose) 1 each IVPB ONE PRN PRN Reason: Pharmacy to dose Stop: 10/31/17 17:17 Ondansetron HCl (Zofran Odt) 4 mg PO Q6H PRN PRN Reason: Nausea/Vomiting Ondansetron HCl (Zofran) 4 mg IVP Q6H PRN PRN Reason: Nausea/Vomiting Last Admin: 10/04/17 19:46 Dose: 4 mg Oxybutynin Chloride (Ditropan Xl) 10 mg PO DAILY [facility] Last Admin: 10/05/17 09:02 Dose: 10 mg Phenol (Chloraseptic [place] 180 Ml Bot) 0 ml PO PRN PRN PRN Reason: Sore Throat Last Admin: 10/05/17 05:14 Dose: 1 spr Polyethylene Glycol (Miralax) 17 gm PO DAILY PRN PRN Reason: Constipation Sodium Biphosphate/Sodium Phosphate (Fleet Enema) 133 ml [place] ONE PRN PRN Reason: Constipation Stop: 10/08/17 17:17 Sodium Chloride ([place] Nas[place] 0.65%) 0 ml EA NARE QIDPRN PRN PRN Reason: Nasal Congestion Sodium Chloride (Flush - Normal Saline) 10 ml IVF Q12HR [facility] Last Admin: 10/05/17 09:08 Dose: 10 ml Sodium Chloride (Flush - Normal Saline) 10 ml IVF PRN PRN PRN Reason: Saline Flush Tramadol HCl (Ultram) 50 mg PO Q4H PRN PRN Reason: Moderate Pain (4-6) Last Admin: 10/04/17 18:22 Dose: 50 mg
[2017-10-05] MEDS: traMADol HCl 50 MG TAB PO PRN (20:35)
[2017-10-05] MEDS: clonazePAM 1 MG TAB PO SCH (20:37)
[2017-10-05] MEDS: Ondansetron HCl/PF 4 MG/2 ML Vial IVP PRN (20:48)
[2017-10-05] MEDS: cefTRIAXone\\ROCEPHIN 2 GM in Sodium Chloride 0.9% 100 ML IVPB SCH (22:36)
[2017-10-06] MEDS: Dicyclomine 10 MG CAP PO SCH (08:23)
[2017-10-06] MEDS: Famotidine 20 MG TAB PO SCH (08:23)
[2017-10-06] MEDS: guaiFENesin ER 600 MG TAB PO SCH (08:23)
[2017-10-06] MEDS: Oxybutynin ER 5 MG TAB PO SCH (08:23)
[2017-10-06] MEDS: Docusate 100 MG CAP PO SCH (08:23)
[2017-10-06] MEDS: Enoxaparin Sodium 40 MG/0.4 ML SYRINGE SC SCH (08:24)
--- NOTE | 2017-10-06 10:25 | DIS ---
DATE OF ADMISSION: 10/01/2017 DATE OF DISCHARGE: 10/06/2017 PRIMARY CARE PHYSICIAN: Dr. Aaliyah Her. DISCHARGE DISPOSITION: Rehabilitation. PRIMARY DISCHARGE DIAGNOSES: Healthcare-associated bacterial pneumonia, sepsis, and hypotension. SECONDARY DISCHARGE DIAGNOSES: Obesity with BMI 33; hypertension; chronic low back pain; anxiety and depression; anemia, normocytic-normochromic; recent history of left total knee replacement. RADIOLOGICAL INVESTIGATION: CT angio showed bibasilar pneumonitis. SIGNIFICANT LABORATORY DATA: WBC 11.7, hemoglobin 8.1, platelets 195. Sodium 137, potassium 4.5, BU N 16, creatinine 1.07, calcium 8.7. Liver enzymes normal. Albumin 3.0. Urinalysis normal. Blood c ulture negative. Influenza negative. Urine culture negative. DISCHARGE MEDICATIONS: Tessalon 100 mg p.o. t.i.d. p.r.n., Dulcolax 10 mg rectally b.i.d. p.r.n., Ce jabari 40 mg p.o. daily, Bentyl 10 mg p.o. b.i.d., Cartia XT 180 mg p.o. daily, Lasix 40 mg p.o. daily, gabapentin 300 mg p.o. b.i.d., Mucinex 600 mg twice daily for 7 days, DuoNeb q.4 hourly p.r.n., Leva charis 500 mg p.o. daily for 7 days, Imodium 2 mg q.i.d. p.r.n., omeprazole 20 mg p.o. daily, Ditropan 10 mg p.o. daily, MiraLax 17 grams p.o. daily, potassium chloride 20 mEq p.o. daily, Phenergan 25 mg q.6 hourly p.r.n., Florastor 250 mg p.o. daily, tramadol 50 mg q.6 hourly p.r.n. CONTRAINDICATIONS: None. CODE STATUS: FULL CODE. INPATIENT CONSULTANTS: None. ALLERGIES: No known drug allergy. DISCHARGE PLAN: Post hospital, the patient will follow up with primary care physician and primary or thopedic physician in a week. HOSPITAL COURSE: A 67-year-old female who had, 2 weeks ago, left knee replacement done by Dr. Prakash ortez at [facility], subsequently for complication of respiratory distress. She required transfer to [facility] where she stayed about 4 or 5 days where she was treated for pneumonia, w hich was newly diagnosed, and she was treated with clindamycin and Levaquin without any significant i mprovement and patient was discharged to [facility]. Patient continued to have increasi ng shortness of breath and that is why family member brought her to emergency room. In the emergency room, CT angio was negative for pulmonary embolism, but CT angio did show bilateral lower lobe infil tration and pleural effusion. Her BNP was normal. She was not having any CHF symptoms. Her surgica l site was clean and healthy. The patient was admitted to medical floor for healthcare-associated pn eumonia. Initially, she was hypotensive and that is why we held all her antihypertensive medication. Patient was initially given IV fluid and we treated her with vancomycin and Zosyn, and subsequent a ntibiotic therapy was changed to Rocephin and Levaquin. Upon discharge, we are changing to p.o. Leva charis for another 7 days and Mucinex is also prescribed. The patient is going to continue all her pre vious medication. Patient has physical deconditioning and that is why she wanted to go to rehab and that is why with he lp of piano case and bench assembler, we arranged her [facility]. While in hospital, her WBC count was slowly improving towards normal. She did not require any oxygen upon discharge. Her oxygen saturation improved and her hypotension resolved. Patient is seen and examined at bedside today. Plan of care [facility] with the [facility] PHYSICAL EXAMINATION: Today, VITAL SIGNS: Currently, temperature 98.4, pulse 74, respiratory rate 20, saturation 94%, blood press ure 136/76, weight 183 pounds. GENERAL: The patient is currently alert, awake, in no obvious acute distress. HEAD: Normocephalic, atraumatic. EYES: Pupils round and reactive to light. Extraocular muscle intact. ENT: Oropharynx within normal limits. Moist mucous membranes. No oral lesions. No pharyngeal eryt felipa, no exudate. NECK: Supple, no JVD, no thyromegaly, no carotid bruit, no meningeal signs of irritation. LUNGS: Clear to auscultation without any rhonchi or rales. CARDIAC: S1 and S2 regular without any murmur. ABDOMEN: Soft and benign. EXTREMITIES: No edema. NEUROLOGIC: Nonfocal examination. Paper work for discharge done. Discharge medication reconciliation done. Plan of care discussed wit h the family member and also discussed with the piano case and bench assembler. Total time spent to arrange discharge of this patient is more than 30 minutes.
--- NOTE | 2017-10-06 11:05 | PDOC.PN ---
- Subjective Encounter Start Date: 10/06/17 Encounter Start Time: 10:15 Patient seen and examined. No new complaints. No overnight events - Objective Resuscitation Status: Resuscitation Status FULL:Full Resuscitation MAR Reviewed: Yes Vital Signs & Weight: Vital Signs (12 hours) Temp Pulse Resp BP Pulse Ox 10/06/17 08:06 98.4 F 74 20 136/76 94 L 10/06/17 08:00 98.4 F 74 20 95 10/06/17 04:00 97.6 F 78 16 147/76 H 97 10/06/17 00:00 98.2 F 83 16 152/86 H 95 Weight Weight 183 lb I&O: 10/05/17 10/06/17 10/07/17 06:59 06:59 06:59 Intake Total 1650 2860 480 Balance 1650 2860 480 Result Diagrams: 10/05/17 03:50 10/05/17 03:50 Phys Exam - Physical Examination Constitutional: NAD HEENT: PERRLA, moist MMs, sclera anicteric Neck: no JVD, supple Respiratory: no wheezing, no rales, no rhonchi Cardiovascular: RRR, no significant murmur, no rub Gastrointestinal: soft, non-tender, no distention, positive bowel sounds Musculoskeletal: no edema, pulses present Neurological: non-focal, normal sensation, moves all 4 limbs Psychiatric: normal affect, A&O x 3 Skin: no rash, normal turgor Dx/Plan (1) Healthcare associated bacterial pneumonia Code(s): J15.9 - UNSPECIFIED BACTERIAL PNEUMONIA Status: Acute (2) Sepsis Code(s): A41.9 - SEPSIS, UNSPECIFIED ORGANISM Status: Acute (3) Status post left knee replacement Code(s): Z96.652 - PRESENCE OF LEFT ARTIFICIAL KNEE JOINT Status: Acute (4) Anemia, normocytic normochromic Code(s): D64.9 - ANEMIA, UNSPECIFIED Status: Chronic (5) Anxiety and depression Code(s): F41.8 - OTHER SPECIFIED ANXIETY DISORDERS Status: Chronic (6) Chronic low back pain Code(s): M54.5 - LOW BACK PAIN; G89.29 - OTHER CHRONIC PAIN Status: Chronic (7) Hypertension Code(s): I10 - ESSENTIAL (PRIMARY) HYPERTENSION Status: Chronic (8) Obesity (BMI 30.0-34.9) Code(s): E66.9 - OBESITY, UNSPECIFIED Status: Chronic (9) Hypotension Status: Resolved - Plan cont current plan of care, plan discussed w/ family, continue antibiotics, PT/OT , social sciences lecturer * medication reviewed as below * symptomatic treatment * see discharge karmen. Review of Systems - Review of Systems ENT: negative: Ear Pain, Ear Discharge, Nose Pain, Nose Discharge, Nose Congestion, Mouth Pain, Mouth Swelling, Throat Pain, Throat Swelling, Other Respiratory: negative: Cough, Dry, Shortness of Breath, Hemoptysis, SOB with Excertion, Pleuritic Pain, Sputum, Wheezing Cardiovascular: negative: chest pain, palpitations, orthopnea, paroxysmal nocturnal dyspnea, edema, light headedness, other Gastrointestinal: negative: Nausea, Vomiting, Abdominal Pain, Diarrhea, Constipation, Melena, Hematochezia, Other Genitourinary: negative: Dysuria, Frequency, Incontinence, Hematuria, Retention , Other Musculoskeletal: negative: Neck Pain, Shoulder Pain, Arm Pain, Back Pain, Hand Pain, Leg Pain, Foot Pain, Other Skin: negative: Rash, Lesions, Sy, Bruising, Other - Medications/Allergies Allergies/Adverse Reactions: Allergies Allergy/AdvReac Type Severity Reaction Status Date / Time No Known Allergies Allergy Unverified 10/01/17 17:53 Medications: Current Medications Acetaminophen (Tylenol) 650 mg PO Q4H PRN PRN Reason: Headache/Fever or Pain Al Hydroxide/Mg Hydroxide (Maalox) 30 ml PO Q6H PRN PRN Reason: Heartburn or Indigestion Albuterol Sulfate (Ventolin) 2.5 mg NEB Q2H PRN PRN Reason: Wheezing Albuterol/Ipratropium (Duoneb) 3 ml NEB [id number] [facility] Last Admin: 10/06/17 06:31 Dose: Not Given Artificial Tears (Tears Naturale) 0 drop EA EYE PRN PRN PRN Reason: Dry Eyes Benzonatate (Tessalon) 200 mg PO Q6H PRN PRN Reason: Cough Last Admin: 10/04/17 21:28 Dose: 200 mg Bisacodyl (Dulcolax) 10 mg SD Q24H PRN PRN Reason: Constipation Clonazepam (Klonopin) 1 mg PO HS [facility] Last Admin: 10/05/17 20:37 Dose: 1 mg Dicyclomine HCl (Bentyl) 10 mg PO BID [facility] Last Admin: 10/06/17 08:23 Dose: 10 mg Docusate Sodium (Colace) 100 mg PO BID [facility] Last Admin: 10/06/17 08:23 Dose: Not Given Enoxaparin Sodium (Lovenox) 40 mg SC 0900 [facility] Last Admin: 10/06/17 08:24 Dose: 40 mg Famotidine (Pepcid) 20 mg PO BID [facility] Last Admin: 10/06/17 08:23 Dose: 20 mg Guaifenesin (Robitussin Sf) 200 mg PO Q4H PRN PRN Reason: Cough Last Admin: 10/04/17 19:49 Dose: 200 mg Guaifenesin (Mucinex) 600 mg PO Q12HR [facility] Last Admin: 10/06/17 08:23 Dose: 600 mg Hydralazine HCl (Apresoline) 10 mg SLOW IVP Q4H PRN PRN Reason: Systolic BP > 180 Ceftriaxone Sodium 2 gm/ (Sodium Chloride) 100 mls @ 200 mls/hr IVPB 2200 [facility] Last Admin: 10/05/17 22:36 Dose: 100 mls Levofloxacin 500 mg/ Device 100 mls @ 100 mls/hr IVPB 2200 [facility] Last Admin: 10/05/17 20:38 Dose: 100 mls Ketorolac Tromethamine (Toradol) 15 mg IVP Q6H PRN PRN Reason: Pain Stop: 10/06/17 17:17 Last Admin: 10/02/17 14:16 Dose: 15 mg Loperamide HCl (Imodium) 2 mg PO PRN PRN PRN Reason: Diarrhea/Loose Stools Loratadine (Claritin) 10 mg PO DAILYPRN PRN PRN Reason: Sinus Symptoms Lorazepam (Ativan) 1 mg PO Q4H PRN PRN Reason: Anxiety/Agitation Last Admin: 10/03/17 21:39 Dose: 1 mg Magnesium Hydroxide (Milk Of Magnesium) 30 ml PO DAILYPRN PRN PRN Reason: Constipation Methylprednisolone Sodium Succinate (Solu-Medrol) 20 mg IVP Q8HR [facility] Last Admin: 10/06/17 05:28 Dose: 20 mg Mineral Oil/White Petrolatum (Eucerin Cream) 0 gm TOP BIDPRN PRN PRN Reason: Dry Skin Ondansetron HCl (Zofran Odt) 4 mg PO Q6H PRN PRN Reason: Nausea/Vomiting Ondansetron HCl (Zofran) 4 mg IVP Q6H PRN PRN Reason: Nausea/Vomiting Last Admin: 10/05/17 20:48 Dose: 4 mg Oxybutynin Chloride (Ditropan Xl) 10 mg PO DAILY [facility] Last Admin: 10/06/17 08:23 Dose: 10 mg Phenol (Chloraseptic M[place]urtain 180 Ml Bot) 0 ml PO PRN PRN PRN Reason: Sore Throat Last Admin: 10/05/17 05:14 Dose: 1 spr Polyethylene Glycol (Miralax) 17 gm PO DAILY PRN PRN Reason: Constipation Sodium Biphosphate/Sodium Phosphate (Fleet Enema) 133 ml SD ONE PRN PRN Reason: Constipation Stop: 10/08/17 17:17 Sodium Chloride ([place] Nasal [place] 0.65%) 0 ml EA NARE QIDPRN PRN PRN Reason: Nasal Congestion Sodium Chloride (Flush - Normal Saline) 10 ml IVF Q12HR [facility] Last Admin: 10/06/17 08:24 Dose: 10 ml Sodium Chloride (Flush - Normal Saline) 10 ml IVF PRN PRN PRN Reason: Saline Flush Tramadol HCl (Ultram) 50 mg PO Q4H PRN PRN Reason: Moderate Pain (4-6) Last Admin: 10/05/17 20:35 Dose: 50 mg
[2017-10-06] MEDS: traMADol HCl 50 MG TAB PO PRN (17:25)
[2017-10-06 19:47] VITALS: BP 129/80; TEMP 98.4
== END 2017-10-06 19:53 | DRG 871 ==
LOC: ERS 13:55 → T4-A 15:54
PROVIDERS: ADMIT Internal Medicine; ATTEND Internal Medicine
DX: A41.9 Sepsis, unspecified organism (principal); J15.9 Unspecified bacterial pneumonia; I95.9 Hypotension, unspecified; J91.8 Pleural effusion in other conditions classified elsewhere; D64.9 Anemia, unspecified; Z96.652 Presence of left artificial knee joint; F41.8 Other specified anxiety disorders; I10 Essential (primary) hypertension; E66.9 Obesity, unspecified; M51.9 Unspecified thoracic, thoracolumbar and lumbosacral intervertebral disc disorder; K58.9 Irritable bowel syndrome, unspecified; N32.81 Overactive bladder; G25.81 Restless legs syndrome; Z68.33 Body mass index [BMI] 33.0-33.9, adult
CPT/HCPCS: 36415; 71275; 80048; 80053; 80202; 81001; 82553; 83605; 83880; 84484; 85025; 87040; 87086; 93005; 93010; 94640; 96365; 96375; A4216; G8978-GP-CL; G8979-GP-CJ; G8987-GO-CK; G8988-GO-CI; J0696; J1650; J1885; J1956; J2405; J2543; J2920; J3370; J7050; J7620

== ENCOUNTER 2018-07-26 11:45 | Outpatient (CLI) | payer MEDICARE, BC ==
--- NOTE | 2018-07-26 18:09 | NM ---
NUCLEAR MEDICINE HEPATOBILIARY SCAN: DATE: 05/28/2018. HISTORY: A 68-year-old female with right upper quadrant abdominal pain with nausea and vomiting, and abnormal gallbladder ultrasound. TECHNIQUE: [id number] dose: 4.5 mCi. Ensure (fatty meal) dose: 8 oz. [id number] injected IV. Dynamic anterior scintigraphy of abdomen for 1 hour. Fatty meal adminis tered. Additional dynamic anterior scintigraphy of abdomen. Counts obtained over gallbladder. Time-a ctivity curve generated. FINDINGS: There is normal uptake and washout of activity from the liver. Bowel activity is visualized. Follow ing fatty meal administration, an abnormally low gallbladder ejection fraction of 18% is obtained. IMPRESSION: Abnormally low gallbladder ejection fraction of 18%: evidence for gallbladder dysfunction. MANA Wilkins POS: NHAN
== END 2018-07-26 11:46 | disposition home or self-care (01) ==
LOC: NM 11:45
PROVIDERS: ATTEND Internal Medicine
DX: R93.89 Abnormal findings on diagnostic imaging of other specified body structures (principal)
CPT/HCPCS: 78227; A9537

== ENCOUNTER 2018-07-30 09:41 | Outpatient (CLI) | payer MEDICARE, BC ==
[2018-07-30 11:50] LABS: ALT (SGPT) 10 U/L (8-55); AST (SGOT) 10 U/L (5-34); Albumin 4.1 g/dL (3.4-4.8); Alkaline Phosphatase 86 U/L (40-150); Anion Gap 12 mmol/L (10-20); BUN (Urea Nitrogen) 17 mg/dL (9.8-20.1); Bilirubin, Direct 0.1 mg/dL (0.1-0.3); Bilirubin, Total 0.2 mg/dL (0.2-1.2); Calc. Creatinine Clearance 0 mL/min (70-130); Calcium 9.3 mg/dL (7.8-10.44); Carbon Dioxide 26 mmol/L (23-31); Chloride 105 mmol/L (98-107); Estimated GFR-MDRD 43; Glucose 96 mg/dL (80-115); Potassium 3.7 mmol/L (3.5-5.1); Protein, Total 8.1 g/dL (6.0-8.3); Sodium 139 mmol/L (136-145)
[2018-07-30 12:00] LABS: Band 1 % (5-11); Hemoglobin 12.4 g/dL (12.0-16.0); Lymphocytes 27 % (21-51); MDiff Complete? YES; Mean Corpuscular HGB CONC 34.1 g/dL (32.0-36.0); Mean Corpuscular Volume 90.8 fL (78.0-98.0); Mean Platelet Volume 9.4 fL (7.4-10.4); Monocytes 27 % (0-10); Neutrophil 45 % (42-75); PLT Morphology Comment Appears Adequate; Platelet Count 216 thou/uL (130-400); RBC Distribution Width 12.1 % (11.5-14.5); RBC Morphology Normal; Red Blood Cell (RBC) Count 4.01 mill/uL (4.20-5.40); White Blood Cell (WBC) Count 9.4 thou/uL (4.8-10.8)
== END 2018-07-30 09:42 | disposition home or self-care (01) ==
LOC: LABBT 09:41
PROVIDERS: ATTEND Surgery
DX: Z01.818 Encounter for other preprocedural examination (principal); K82.8 Other specified diseases of gallbladder
CPT/HCPCS: 80048; 80076; 85025; 85060; 93005; 93010

== ENCOUNTER 2018-08-03 11:44 | Day surgery (SDC) | payer MEDICARE, BC ==
[2018-07-30 10:03] VITALS: BMI 33.0
[2018-08-03] MEDS ORDERED: Scopolamine 1.5 mg/72 hour Patch ONE ×2 (12:39→13:08)
[2018-08-03] MEDS ORDERED: cefOXitin Sodium/Dextrose,Iso 2 GM in Premix Bag 1 BAG IVPB SCH (12:45)
[2018-08-03] MEDS ORDERED: Bupivacaine/Epinephrine 0.25% 30 ML VIAL ONE (13:04)
[2018-08-03] MEDS ORDERED: Famotidine/PF 20 mg/2ml Vial ONE (13:07)
[2018-08-03] MEDS ORDERED: Fentanyl 100 MCG/2 ML VIAL ONE ×5 (13:08→16:18)
--- NOTE | 2018-08-03 14:37 | OP ---
DATE OF PROCEDURE: 08/03/2018 PREOPERATIVE DIAGNOSIS: Chronic biliary dyskinesia. POSTOPERATIVE DIAGNOSIS: Chronic biliary dyskinesia. PROCEDURE PERFORMED: Laparoscopic cholecystectomy. ANESTHESIA: General. ESTIMATED BLOOD LOSS: Minimal. COMPLICATIONS: None. SPECIMEN: Gallbladder. FINDINGS: Chronic cholecystitis. PROCEDURE IN DETAIL: The patient was taken to the operating room and laid supine on the operating room table. After general anesthetic was obtained, the abdomen was prepped and draped in a sterile fashion. A curved incision was made below the umbilicus. Cautery was used to dissect down to the umbilical fascia. Umbilical fascia was incised and held up using a Pete. The abdominal cavity was entered using a Bekah clamp. Holding stitch of Vicryl was placed on each side of the fascia. Dobbins trocar was placed. High-flow pneumoperitoneum was obtained. An upper midline 5 mm port and 2 right upper quadrant 5 mm ports were placed under direct camera visualization. The gallbladder was retracted from the gallbladder fossa. The peritoneum of the gallbladder was opened anteriorly and posteriorly. The critical view triangle was seen showing only the cystic duct and cystic artery branching from medial to lateral. There were no other branching structures. Two clips were placed proximally on the cystic duct and one laterally. It was cut using laparoscopic scissors. The cystic artery was taken in the same way. Electrocautery was then used to dissect the gallbladder out of the gallbladder fossa. The gallbladder was placed in an Endo catch bag and brought out through the Dobbins. There was no bleeding or bile in the liver bed. The cystic duct stump and cystic artery stump were intact, without evidence of extravasation or bleeding. All port sites were infiltrated using local anesthesia. All ports were removed under camera visualization. Pneumoperitoneum was let down. The Vicryl was used to close the fascial defect below the umbilicus. All incisions were irrigated and closed using 4-0 Monocryl and Dermabond. The patient was en route to Recovery in stable condition. All instrument counts, needle counts and lap counts were correct. Job ID: [id number]
[2018-08-03] MEDS ORDERED: Ketorolac Tromethamine 30 MG/ML VIAL ONE (16:56)
[2018-08-03] MEDS ORDERED: traMADol HCl 50 MG TAB ONE (17:07)
[2018-08-03] MEDS ORDERED: ePHEDrine/0.9% NaCl/PF SYRINGE 50 mg/10 ml ONE (21:03)
[2018-08-03] MEDS ORDERED: PROPOFOL 200 MG/20 ML VIAL ONE (21:03)
[2018-08-03] MEDS ORDERED: Dexamethasone 20 MG/5 ML VIAL ONE (21:03)
[2018-08-03] MEDS ORDERED: Lidocaine 1% PF 5 ML VIAL ONE (21:03)
[2018-08-03] MEDS ORDERED: Ondansetron PF 4 MG/2 ML Vial ONE (21:03)
[2018-08-03] MEDS ORDERED: Esmolol 100 MG/10 ML VIAL ONE (21:03)
[2018-08-03] MEDS ORDERED: CEFAZOLIN 1 GM VIAL ONE (21:03)
[2018-08-03] MEDS ORDERED: Succinylcholine Chloride 20 MG/ML 10 ml SYRINGE FS ONE (21:03)
[2018-08-03] MEDS ORDERED: Sterile Water 10 ML VIAL ONE (21:03)
== END 2018-08-03 18:56 | disposition home or self-care (01) ==
LOC: SDC 11:44
PROVIDERS: ATTEND Surgery
PROC: 0FT44ZZ Resection of Gallbladder, Percutaneous Endoscopic Approach (ICD-10-PCS; principal; 2018-08-03)
DX: K81.2 Acute cholecystitis with chronic cholecystitis (principal); K82.8 Other specified diseases of gallbladder; K21.9 Gastro-esophageal reflux disease without esophagitis; F32.9 Major depressive disorder, single episode, unspecified; M19.90 Unspecified osteoarthritis, unspecified site; E78.00 Pure hypercholesterolemia, unspecified; G43.909 Migraine, unspecified, not intractable, without status migrainosus; K58.1 Irritable bowel syndrome with constipation; Z79.899 Other long term (current) drug therapy; Z88.5 Allergy status to narcotic agent; Z88.8 Allergy status to other drugs, medicaments and biological substances
CPT/HCPCS: 88304; 96374; A4216; J0690; J1100; J1885; J2001; J2405; J2704; J3010; J3490; S0028

== ENCOUNTER 2020-09-06 07:54 | Outpatient (CLI) | payer MEDICARE, BC ==
[2020-09-06 14:20] LABS: Bilirubin Neg (Negative); Blood, Urine Negative (Negative); Clarity Clear (Clear); Glucose, Urine (Dipstick) Normal (Negative); Ketone, Urine Negative (Negative); Leukocyte Negative (Negative); Nitrite Negative (Negative); Protein, Urine (Dipstick) Negative (Neg-Trace); Urobilinogen Normal mg/dL (Less than 2)
[2020-09-06 15:08] LABS: Bacteria/HPF 1+ HPF (None Seen); RBC/HPF None Seen HPF (0-3); Squamous Epithelial 0-3 HPF (0-3); WBC/HPF 0-3 HPF (0-3)
[2020-09-07 00:15] LABS: SARS-CoV-2 PCR by NAA Not Detected (NotDetected)
--- NOTE | 2020-09-07 12:35 | EKG ---
Test Reason : PREOP Blood Pressure : / mmHG Vent. Rate : 092 BPM Atrial Rate : 092 BPM P-R Int : 144 ms QRS Dur : 074 ms QT Int : 386 ms P-R-T Axes : 055 -22 047 degrees QTc Int : 477 ms Normal sinus rhythm Moderate voltage criteria for LVH, may be normal variant Cannot exclude Anterior infarct , age undetermined Abnormal ECG No previous ECGs available Confirmed by RICHARD VANESSA ([id number]) on 09/07/2020 12:35:22 PM Referred By: EDUARDA Confirmed By:RICHARD VANESSA
== END 2020-09-06 07:55 | disposition home or self-care (01) ==
LOC: LABBT 07:54
PROVIDERS: ATTEND Orthopaedic Surgery Hand Surgery
DX: Z01.818 Encounter for other preprocedural examination (principal); Z20.822 Contact with and (suspected) exposure to COVID-19; R20.0 Anesthesia of skin; R22.31 Localized swelling, mass and lump, right upper limb
CPT/HCPCS: 81001; 93005; U0003; U0005; 87635; 93010

== ENCOUNTER 2020-09-11 08:35 | Day surgery (SDC) | payer MEDICARE, BC ==
[2020-09-07 12:47] VITALS: BMI 30.2
[2020-09-11] MEDS ORDERED: Rocuronium Bromide 10 MG/ML (10ML VIAL) ONE (09:04)
[2020-09-11] MEDS ORDERED: Dexamethasone 20 MG/5 ML VIAL ONE (09:04)
[2020-09-11] MEDS ORDERED: Lidocaine 1% PF 5 ML VIAL ONE (09:04)
[2020-09-11] MEDS ORDERED: PHENYLEPHRINE-NS 100 MCG/ML 10 ML SYRINGE ONE (09:04)
[2020-09-11] MEDS ORDERED: PROPOFOL 200 MG/20 ML VIAL ONE (09:04)
[2020-09-11] MEDS ORDERED: ePHEDrine 50 MG/ML VIAL ONE (09:04)
[2020-09-11] MEDS ORDERED: Ketorolac Tromethamine 30 MG/ML VIAL ONE (09:04)
[2020-09-11] MEDS ORDERED: Ondansetron PF 4 MG/2 ML Vial ONE (09:04)
[2020-09-11] MEDS ORDERED: Bupivacaine PF 0.5% 30 ML VIAL ONE (13:25)
[2020-09-11] MEDS ORDERED: Betamet Acet/Betamet Na Ph 30 MG/5 ML VIAL ONE (13:25)
[2020-09-11] MEDS ORDERED: Sodium Chloride 0.9% 10 ML ONE (13:26)
[2020-09-11] MEDS ORDERED: Bacitracin Zinc Ointment 30 gm TUBE ONE (13:26)
[2020-09-11] MEDS ORDERED: Fentanyl 100 MCG/2 ML VIAL ONE (13:31)
[2020-09-11] MEDS ORDERED: SUGAMMADEX SODIUM 200 MG/2 ML VIAL ONE (14:25)
[2020-09-11] MEDS ORDERED: HYDROcodone/Acetaminophen 5/325 mg Tablet ONE (15:47)
--- NOTE | 2020-09-12 13:36 | OP ---
DATE OF PROCEDURE: 09/11/2020 PREOPERATIVE DIAGNOSIS: Right middle finger painful cystic mass over the A1 forrest region with complaint of ulnar side digital nerve numbness and tingling. FINDINGS: 1. Digital nerve compression, almost 50% constriction in the center of the mass as the nerve was draped over the ulnar aspect of the mass with the mass slightly more ulnar than central. 2. No digital nerve abnormality is seen on the radial side. 3. 2.5 cm multiloculated mass slightly more eccentric to the ulna over the A1 forrest with the A1 forrest attached in some parts where it could not be removed from the ganglion, but could be removed from the rest of the A1 forrest. No tenosynovectomy of the flexor seen. PROCEDURES DONE: 1. A1 forrest release. 2. Ulnar digital nerve neuroplasty and radial digital nerve neuroplasty at the right middle finger. 3. Right middle finger, 2.5 cm multiloculated mass with A1 forrest excised. COMPLICATIONS: None. TOURNIQUET TIME: 19 minutes. ESTIMATED BLOOD LOSS: Less than or equal to 10 mL. INDICATIONS: Mass with pain including numbness and tingling just in ulna, and the mass with slightly more eccentric feel in it, preop although not the same postop. ANESTHESIA: Again general endotracheal anesthesia augmented by total of 20 mL of 0.5% Marcaine, given 10 without epinephrine preincision and 10 afterwards. Celestone dripped in the wound. DESCRIPTION OF PROCEDURE: After successful general endotracheal anesthesia because of the concerns with airway, gastritis, and GI upset, the patient then had the limb prepped and draped. Tourniquet inflated to 250 mmHg pressure at the outlined incision centered in a Meir incision on the mass. We gave this area of incision remaining cubic centimeters of Marcaine. Once we entered the incision, we created a large skin flap, there was marked amount of fat. This was from the mass and on side you could see the constriction ulnarly of the ulnar digital nerve branch to the ring finger as it coursed by the mass, given the S length and the proximal one-third of the incision with the radial digital nerve. Then, we had to remove a piece of the A1 forrest, the central 50%, in order to elevate the mass from the A1 forrest in the tendon sheath. This was done with blunt and sharp dissection . We inspected the flexor tendon as far proximal as we could see and as far distal we could see and even after its division, it still had no evidence of debris, contamination, or infection. We irrigated this area with 50 mL of normal saline without epinephrine. Then we completed the A1 forrest base as well as the digital nerve neuroplasty on that side of the digit. We released the tourniquet, obtained hemostasis. Sent the specimen to the lab. Gave additional 10 mL of 0.5% Marcaine subcutaneous injection and the patient left the operating room without evidence of anesthetic or operative complications. Job ID: [id number]
== END 2020-09-11 16:18 | disposition home or self-care (01) ==
LOC: SDC 08:35
PROVIDERS: ATTEND Orthopaedic Surgery Hand Surgery
PROC: 0LB70ZZ Excision of Right Hand Tendon, Open Approach (ICD-10-PCS; principal; 2020-09-11)
PROC: 01N60ZZ Release Radial Nerve, Open Approach (ICD-10-PCS; 2020-09-11)
PROC: 01N40ZZ Release Ulnar Nerve, Open Approach (ICD-10-PCS; 2020-09-11)
DX: G56.81 Other specified mononeuropathies of right upper limb (principal); M67.441 Ganglion, right hand; I11.9 Hypertensive heart disease without heart failure; K21.9 Gastro-esophageal reflux disease without esophagitis; F32.9 Major depressive disorder, single episode, unspecified; M19.90 Unspecified osteoarthritis, unspecified site; E78.00 Pure hypercholesterolemia, unspecified; G43.909 Migraine, unspecified, not intractable, without status migrainosus; K59.09 Other constipation; Z79.899 Other long term (current) drug therapy; Z88.5 Allergy status to narcotic agent; Z88.6 Allergy status to analgesic agent; Z88.8 Allergy status to other drugs, medicaments and biological substances; Z20.822 Contact with and (suspected) exposure to COVID-19
CPT/HCPCS: 88304; J0690; J0702; J1100; J1885; J2405; J2704; J3010; J3490; S0020

== ENCOUNTER 2021-05-17 05:24 | Inpatient (IN) | payer MEDICARE, BC ==
[2021-05-17] MEDS ORDERED: Norepinephrine 8 MG/0.9% NS 250 ML ONE (05:41)
[2021-05-17 06:41] LABS: Hemoglobin 9.4 g/dL (12.0-16.0); Mean Corpuscular HGB CONC 32.6 g/dL (32.0-36.0); Mean Corpuscular Hemoglobin 29.5 pg (27.0-31.0); Mean Corpuscular Volume 90.6 fL (78.0-98.0); Mean Platelet Volume 9.3 fL (7.4-10.4); Platelet Count 201 thou/uL (130-400); RBC Distribution Width 14.9 % (11.5-14.5); Red Blood Cell (RBC) Count 3.19 mill/uL (4.20-5.40); White Blood Cell (WBC) Count 40.8 thou/uL (4.8-10.8)
[2021-05-17 07:29] LABS: Band 12 % (5-11); Lymphocytes 8 % (21-51); MDiff Complete? YES; Monocytes 40 % (0-10); Neutrophil 40 % (42-75); Platelet Morphology Comment Appears Adequate; Polychromasia SLIGHT = 2-3 cells (100X) (0-2/hpf); Reactive Lymphocytes 1 % (0-10); Reflex for Review?? NO
[2021-05-17] MEDS ORDERED: Electrolyte Replacement Protocol 1 EACH IVPB SCH (07:43)
[2021-05-17] MEDS ORDERED: Norepinephrine 8 MG/0.9% NS 250 ML IVPB PRN (07:43)
[2021-05-17 10:18] VITALS: BMI 32.7
[2021-05-17 11:49] LABS: ALT (SGPT) 22 U/L (8-55); AST (SGOT) 21 U/L (5-34); Alkaline Phosphatase 75 U/L (40-110); Anion Gap 10 mmol/L (10-20); BUN (Urea Nitrogen) 16 mg/dL (9.8-20.1); Bilirubin, Total 0.5 mg/dL (0.2-1.2); Calc. Creatinine Clearance 54 mL/min (70-130); Carbon Dioxide 27 mmol/L (23-31); Chloride 107 mmol/L (98-107); Globulin 2.9 g/dL (2.4-3.5); Glucose 95 mg/dL (80-115); Potassium 3.4 mmol/L (3.5-5.1); Protein, Total 5.9 g/dL (5.8-8.1); Sodium 141 mmol/L (136-145)
[2021-05-17] MEDS: cefTRIAXone\\ROCEPHIN 1 GM in Sodium Chloride 0.9% 100 ML IVPB SCH (12:18)
[2021-05-17] MEDS: Lactated Ringer's 1,000 ML IV SCH ×2 (12:19→20:23)
[2021-05-17] MEDS: Pantoprazole 40 MG VIAL IVP SCH ×2 (12:21→20:24)
[2021-05-17] MEDS ORDERED: Potassium Chloride 40 MEQ in Sodium Chloride 0.9% 250 ML 250 ML IVPB SCH (14:00)
[2021-05-17 17:36] LABS: Bilirubin Negative (Negative); Blood, Urine 1+ (Negative); Clarity Extra Turbid (Clear); Glucose, Urine (Dipstick) Normal (Negative); Ketone, Urine Negative (Negative); Leukocyte 500 Leu/uL (Negative); Nitrite Negative (Negative); Protein, Urine (Dipstick) 50 mg/dL (Neg-Trace); Specific Gravity, Urine 1.018 (1.002-1.036); Urobilinogen Normal mg/dL (Less than 2); WBC/HPF Greater than 50 HPF (0-3)
[2021-05-17 17:44] LABS: Bacteria/HPF 1+ HPF (None Seen); Urine Culture Reflex No No
[2021-05-17 18:22] LABS: Hemoglobin 10.5 g/dL (12.0-16.0)
[2021-05-17] MEDS ORDERED: FLU VACC QS2021-22(65YR UP)/PF 240 MCG/0.7 ML SYRINGE IM ONE (21:00)
[2021-05-18] MEDS: Lactated Ringer's 1,000 ML IV SCH ×2 (02:05→15:17)
[2021-05-18 04:45] LABS: Hemoglobin 10.1 g/dL (12.0-16.0); Mean Corpuscular HGB CONC 33.4 g/dL (32.0-36.0); Mean Corpuscular Hemoglobin 30.4 pg (27.0-31.0); Mean Platelet Volume 9.5 fL (7.4-10.4); Platelet Count 151 thou/uL (130-400); RBC Distribution Width 14.7 % (11.5-14.5); Red Blood Cell (RBC) Count 3.33 mill/uL (4.20-5.40); White Blood Cell (WBC) Count 17.8 thou/uL (4.8-10.8)
[2021-05-18 05:02] LABS: Anion Gap 10 mmol/L (10-20); BUN (Urea Nitrogen) 14 mg/dL (9.8-20.1); Calc. Creatinine Clearance 66 mL/min (70-130); Calcium 8.2 mg/dL (7.8-10.44); Carbon Dioxide 26 mmol/L (23-31); Chloride 109 mmol/L (98-107); Glucose 82 mg/dL (80-115); Lipase Less than 4 U/L (8-78); Sodium 141 mmol/L (136-145)
[2021-05-18 05:10] LABS: Band 1 % (5-11); Lymphocytes 8 % (21-51); MDiff Complete? YES; Monocytes 30 % (0-10); Neutrophil 59 % (42-75); Platelet Morphology Comment Appears Adequate; RBC Morphology Normal; Reactive Lymphocytes 2 % (0-10)
[2021-05-18] MEDS: cefTRIAXone\\ROCEPHIN 1 GM in Sodium Chloride 0.9% 100 ML IVPB SCH (09:22)
[2021-05-18] MEDS: Pantoprazole 40 MG VIAL IVP SCH ×2 (09:30→20:58)
[2021-05-18] MEDS ORDERED: PROPOFOL 200 MG/20 ML VIAL ONE (11:30)
[2021-05-18] MEDS ORDERED: ALPRAZolam 0.5 MG TAB PO PRN (15:53)
[2021-05-18] MEDS ORDERED: ALPRAZolam 0.5 MG TAB PO SCH (16:00)
[2021-05-18] MEDS: Gabapentin 300 MG CAP PO SCH (20:02)
[2021-05-18] MEDS: Dicyclomine 10 MG CAP PO SCH (20:04)
[2021-05-18] MEDS: Trospium 20 MG TAB PO SCH (20:05)
[2021-05-18] MEDS ORDERED: DULoxetine 30 MG CAP PO SCH (21:00)
[2021-05-18] MEDS ORDERED: TOLTERODINE TARTRATE 2 MG PO SCH (21:00)
[2021-05-19 06:17] LABS: Anion Gap 10 mmol/L (10-20); BUN (Urea Nitrogen) 10 mg/dL (9.8-20.1); Calc. Creatinine Clearance 71 mL/min (70-130); Calcium 8.7 mg/dL (7.8-10.44); Carbon Dioxide 29 mmol/L (23-31); Chloride 107 mmol/L (98-107); Glucose 88 mg/dL (80-115); Potassium 4.3 mmol/L (3.5-5.1); Sodium 142 mmol/L (136-145)
[2021-05-19 06:20] LABS: Eosinophils 1 % (0-10); Hemoglobin 11.1 g/dL (12.0-16.0); Lymphocytes 19 % (21-51); MDiff Complete? YES; Mean Corpuscular HGB CONC 34.2 g/dL (32.0-36.0); Mean Corpuscular Hemoglobin 30.9 pg (27.0-31.0); Mean Corpuscular Volume 90.4 fL (78.0-98.0); Mean Platelet Volume 9.3 fL (7.4-10.4); Monocytes 35 % (0-10); Neutrophil 45 % (42-75); Platelet Count 141 thou/uL (130-400); Platelet Morphology Comment Appears Adequate; RBC Distribution Width 14.4 % (11.5-14.5); Red Blood Cell (RBC) Count 3.59 mill/uL (4.20-5.40); White Blood Cell (WBC) Count 11.8 thou/uL (4.8-10.8)
[2021-05-19 07:51] VITALS: BP 140/64; TEMP 98.2
[2021-05-19] MEDS: Gabapentin 300 MG CAP PO SCH (08:50)
[2021-05-19] MEDS: Dicyclomine 10 MG CAP PO SCH (08:50)
[2021-05-19] MEDS: Trospium 20 MG TAB PO SCH (08:51)
[2021-05-19] MEDS ORDERED: Fluticasone Propionate Nasal Spray 16 gm Bottle NASAL SCH (09:00)
[2021-05-19] MEDS ORDERED: Montelukast Sodium 4 mg Chewable Tablet PO SCH (09:00)
[2021-05-19] MEDS ORDERED: Cefdinir 300 MG CAP PO SCH (09:00)
[2021-05-19] MEDS ORDERED: Loratadine 10 MG TAB PO SCH (09:00)
== END 2021-05-19 11:17 | disposition home or self-care (01) | DRG 377 ==
LOC: ERS 05:24 → CCU 06:24 → SURG A 05-18 13:17
PROVIDERS: ADMIT Emergency Medicine; ATTEND Emergency Medicine
PROC: 3E033XZ Introduction of Vasopressor into Peripheral Vein, Percutaneous Approach (ICD-10-PCS; 2021-05-17)
PROC: 30233N1 Transfusion of Nonautologous Red Blood Cells into Peripheral Vein, Percutaneous Approach (ICD-10-PCS; 2021-05-17)
PROC: 0DB78ZX Excision of Stomach, Pylorus, Via Natural or Artificial Opening Endoscopic, Diagnostic (ICD-10-PCS; principal; 2021-05-18)
DX: K92.2 Gastrointestinal hemorrhage, unspecified (principal); R57.1 Hypovolemic shock; N39.0 Urinary tract infection, site not specified; N17.9 Acute kidney failure, unspecified; E78.5 Hyperlipidemia, unspecified; E78.00 Pure hypercholesterolemia, unspecified; G25.81 Restless legs syndrome; K58.9 Irritable bowel syndrome, unspecified; N32.81 Overactive bladder; I12.9 Hypertensive chronic kidney disease with stage 1 through stage 4 chronic kidney disease, or unspecified chronic kidney disease; Z96.653 Presence of artificial knee joint, bilateral; F32.9 Major depressive disorder, single episode, unspecified; K21.9 Gastro-esophageal reflux disease without esophagitis; M51.36 Other intervertebral disc degeneration, lumbar region; G89.29 Other chronic pain; D63.1 Anemia in chronic kidney disease; N18.2 Chronic kidney disease, stage 2 (mild); K25.9 Gastric ulcer, unspecified as acute or chronic, without hemorrhage or perforation; Z90.49 Acquired absence of other specified parts of digestive tract; Z90.710 Acquired absence of both cervix and uterus; Z88.5 Allergy status to narcotic agent; Z88.8 Allergy status to other drugs, medicaments and biological substances; Z79.891 Long term (current) use of opiate analgesic; Z79.899 Other long term (current) drug therapy
CPT/HCPCS: 36415; 36430; 80048; 80053; 81001; 83690; 83880; 84145; 84484; 85025; 86850; 86900; 86901; 88305; 88342; 96374; C9113; J0696; J2704; J3480; J3490; J7050; J7120; P9016